=== PATIENT | male | born 1985 | race Caucasian/White ===

== ENCOUNTER 2020-04-29 16:51 | Emergency (ER) | payer OTHER, SELFPAY ==
[2020-04-29 17:15] VITALS: BP 154/84; PULSE 119; RESP 16; TEMP 37.1; O2SAT 97; BMI 35.2
--- NOTE | 2020-04-29 18:11 | HMH.EDUTC ---
[facility] [place] Disposition Clinical Impression: Exposure to COVID-19 virus, Viral syndrome, Bronchitis Disposition: Home, Self-Care Condition on Discharge: Good Instructions: Preventing the Spread of Coronavirus Discharge Instructions Additional Instructions: Drink plenty of fluids. Take tylenol or ibuprofen for pain or fever. Take the medications as directed. Follow up with your regular doctor. GO TO THE ER FOR ANY WORSENING SYMPTOMS Prescriptions: Albuterol Sulfate [Albuterol Sulfate Hfa] 2 puffs IH Q6HP PRN 30 Days #1 hfa.aer.ad PRN Reason: Shortness Of Breath Transmission Status: Received by [facility] Benzonatate [Tessalon Perle 100mg Cap] 100 mg PO TIDP PRN #30 cap PRN Reason: Cough Transmission Status: Received by [facility] Azithromycin [Z-Ruddy 250mg Tab*] 250 mg PO UD DOSE PK #6 tab Transmission Status: [facility] Referrals: Reshma Arellano [Primary Care Provider] - Time of Disposition: 18:16 Medical Decision Making - Medical Records Medical records reviewed: No: I reviewed the patient's medical records. - Thierno Inquiry Pt receiving controlled substance: No Vital Signs: 04/29/20 17:15 04/29/20 18:31 Temperature 98.7 F 98.7 F Temperature Source Oral Pulse Rate 119 H Pulse Rate [Right Brachial] 119 H Respiratory Rate 16 16 Blood Pressure 154/84 H Blood Pressure [Right Arm] 154/84 H Blood Pressure Mean [Right Arm] 107 Blood Pressure Source [Right Arm] Automatic Cuff Blood Pressure Position [Right Arm] Sitting 02 Sat by Pulse Oximetry 97 Oxygen Delivery Method Room Air Orders (Tests/Meds): ORDERS Category Date Time Status Covid-19 Nasal PCR ([facility]) Routine Lab 04/29/20 17:25 Received [facility] [place] HPI - General Stated complaint: fever,SOB,Vomiting, Pain Time Seen by Provider: 04/29/20 18:14 Mode of Arrival: Ambulatory Source of Information: Patient Limitations: No Limitations Description of Symptoms (Recalled from Triage Doc. by RN): PATIENT C/O FEVER, SOA, COUGH, AND BODY ACHES X 2 DAYS HEENT Symptoms (Recalled from RN notes): No Resp Symptoms (Recalled from RN notes): Yes Skin Symptoms (Recalled from RN notes): No MS Symptoms (Recalled from RN notes): No Functional Status (Recalled from RN notes): WNL - History of Present Illness Provider Complaint: He states that for the past 3 days he has had chest congestion, cough, fever, chills, body aches. He denies known contact with covid. - Related Data Previous Rx's Medication Instructions Recorded Albuterol Sulfate [Albuterol 2 puffs IH Q6HP PRN 30 Days #1 04/29/20 Sulfate Hfa] hfa.aer.ad Azithromycin [Z-Ruddy 250mg Tab*] 250 mg PO UD DOSE PK #6 tab 04/29/20 Benzonatate [Tessalon Perle 100mg 100 mg PO TIDP PRN #30 cap 04/29/20 Cap] Allergies Allergy/AdvReac Type Severity Reaction Status Date / Time No Known Allergies Allergy Verified 05/26/18 11:18 - Worker's Comp Is this a Worker's Comp case?: No [facility] History - Hepatitis A Screen Drug use history?: No High risk sexual behaviors?: No History of sexually transmitted infection?: No Currently employed?: No Childcare worker?: No Do you have indoor plumbing?: Yes Do you have electricity?: Yes Attestation statement:: This patient has been screened for Hepatitis A risk factors. I have reviewed the patient's past medical history: Yes Other Surgeries: Yes: No Previous Surgery Amputation: No Fractures: No - Social History Smoking Status: Current every day smoker Tobacco Type: cigarettes # Packs/Day (cigarettes): 1 Alcohol Intake: never Alcohol Intake Frequency:: holidays/special occasions only Occupational Status: other Family Hx:: No significant family history ROS Obtained: Yes All systems reviewed & no additional complaints - Constitutional Constitutional: Reports system reviewed and no additional complaints, except as docu - Eyes Eyes: Reports system reviewed and no additional complaints,
[2020-04-29 18:31] VITALS: BP 154/84; PULSE 119; RESP 16; TEMP 37.1; O2SAT 97
[2020-04-29 21:06] LABS: UTC Influenza A Antigen Negative (Negative); UTC Influenza B Antigen Negative (Negative)
== END 2020-04-29 18:36 | disposition home or self-care (01) ==
PROVIDERS: Emergency Provider Nurse Practitioner Family; PCP Physician Assistant
DX: Z20.828 Contact with and (suspected) exposure to other viral communicable diseases (principal); J20.9 Acute bronchitis, unspecified; F17.210 Nicotine dependence, cigarettes, uncomplicated
CPT/HCPCS: 87804; 99201; U0003

== ENCOUNTER → 2020-05-09 15:04 | Outpatient (CLI) | payer OTHER, SELFPAY ==
[2020-05-11 14:03] LABS: Covid-19 Nasal PCR Sendout Lex NOT DETECTED
== END ==
PROVIDERS: PCP Nurse Practitioner Family; Visit Provider Nurse Practitioner Family
DX: Z03.818 Encounter for observation for suspected exposure to other biological agents ruled out (principal)
CPT/HCPCS: U0004

== ENCOUNTER → 2020-06-28 13:16 | Outpatient (CLI) | payer OTHER, SELFPAY ==
--- NOTE | 2020-06-28 13:24 | XR_ITS ---
PROCEDURE: XR FOOT LT MIN 3V CLINICAL INDICATION: LT FOOT PAIN,LT FOOT SWELLING COMPARISON: No exams were available for comparison FINDINGS: No fracture or dislocation. No lytic or blastic change. There is normal mineralization. The joint spaces are well-preserved. No significant degenerative/arthritic changes. No erosive changes evident. Other findings:None. IMPRESSION: No acute findings. Dictated by: Michael Whiting MD 06/28/2020 14:58 Michael Whiting MD in [place] 06/28/2020 14:58
== END ==
PROVIDERS: PCP Nurse Practitioner Family; Visit Provider Nurse Practitioner Family
DX: M79.672 Pain in left foot (principal); R22.42 Localized swelling, mass and lump, left lower limb
CPT/HCPCS: 73630

== ENCOUNTER → 2020-07-25 14:24 | Outpatient (CLI) | payer OTHER, SELFPAY ==
--- NOTE | 2020-07-25 14:52 | XR_ITS ---
PROCEDURE: XR CHEST 2V CLINICAL HISTORY: CHEST PAIN, UNSPECIFIED, SOB COMPARISON: No exams were available for comparison FINDINGS: The cardiomediastinal silhouette and pulmonary vascularity are within normal limits. The lungs are clear without infiltrates, suspicious nodules, or pleural effusions. There is a bone plate overlying the left clavicle. Calcified granuloma is present in the left apex. IMPRESSION: No acute findings. Dictated by: Michael Whiting MD 07/25/2020 15:50 Michael Whiting MD in [place] 07/25/2020 15:50
--- NOTE | 2020-07-25 15:18 | ECG_ITS ---
APPROVED REPORT Exam: Resting ECG HR:108 bpm ECG Measurements Heart Rate 108 AXES MT 140 P 47 QRSd 100 QRS 84 QT 328 T 10 QTc 439 Conclusion Sinus tachycardia Otherwise normal ECG Electronically signed by : Ricardo Pineda, 07/25/2020 20:13:41
[2020-07-25 15:21] LABS: Basophils # 0.1 K/mm3 (0-0.2); Basophils % 0.7 % (0.1-2.0); Eosinophils # 0.3 K/mm3 (0.0-0.4); Hematocrit 48.5 % (42.0-52.0); Lymphocytes # 3.3 K/mm3 (0.7-4.5); Lymphocytes % 41.6 % (10-50); Mean Corpuscular Hemoglobin 30.1 pg (27.0-31.2); Mean Corpuscular Volume 91.1 fl (80-94); Mean Platelet Volume 7.7 fl (7.4-10.4); Monocytes # 0.5 K/mm3 (0.1-1.0); Monocytes % 6.3 % (1.7-9.3); Neutrophils # 3.7 K/mm3 (1.8-7.8); Neutrophils % 47.4 % (37.0-80.0); Platelet Count 315 K/mm3 (142-424); Red Blood Count 5.32 M/mm3 (4.60-6.20); Red Cell Distribution Width 13.2 % (11.5-17.5); White Blood Count 7.9 K/mm3 (4.8-10.8)
[2020-07-25 17:02] LABS: Chloride 106 mmol/L (98-107); Potassium 4.2 mmoL/L (3.5-5.1); Sodium 139 mmol/L (136-145)
[2020-07-25 17:04] LABS: Blood Urea Nitrogen 14 mg/dl (9-20); Estimated Glomerular Filt Rate 109 ml/min (>60); GFR (African American) 132 ML/MIN (>60)
[2020-07-25 17:05] LABS: Alanine Aminotransferase 205 U/L (12-78); Albumin/Globulin Ratio 1.7 (1.1-1.8); Alkaline Phosphatase 103 U/L (38-126); Anion Gap 12.2 mEq/L (5-15); Aspartate Amino Transferase 111 U/L (17-59); Bilirubin,Total 0.6 mg/dl (0.2-1.3); Calcium 10.4 mg/dl (8.4-10.2); Carbon Dioxide 25 mmol/L (22.0-30.0); Cholesterol 246 mg/dl (140-200); Glucose 193 mg/dl (74-100)
[2020-07-25 17:12] LABS: Triglycerides 566 mg/dl (30-150)
[2020-07-25 17:16] LABS: Direct LDL Cholesterol 107.93 mg/dL (100-129)
[2020-07-25 17:18] LABS: Troponin I < 0.01 ng/ml (0.00-0.034)
[2020-07-25 17:36] LABS: Thyroid Stimulating Hormone 1.85 uIU/mL (0.465-4.68)
[2020-07-25 23:31] LABS: Chol/HDL Ratio 5.5 (1-3.5); HDL Cholesterol 45 mg/dl (40-60); Magnesium 1.8 mg/dl (1.6-2.3)
== END ==
PROVIDERS: Visit Provider Nurse Practitioner Family
DX: R07.9 Chest pain, unspecified (principal); R06.02 Shortness of breath
CPT/HCPCS: 36415; 71046; 80053; 80061; 83735; 84443; 84484; 85025; 93005

== ENCOUNTER 2020-07-31 21:53 | Emergency (ER) | payer OTHER, SELFPAY ==
[2020-07-31 21:53] VITALS: BP 178/108; PULSE 111; RESP 19; TEMP 36.7; O2SAT 96; BMI 39.9
--- NOTE | 2020-07-31 21:57 | ECG_ITS ---
APPROVED REPORT Exam: Resting ECG HR:124 bpm ECG Measurements Heart Rate 124 AXES MT 132 P 52 QRSd 98 QRS 84 QT 308 T 10 QTc 442 Conclusion Sinus tachycardia Otherwise normal ECG Electronically signed by : Ricardo Pineda, 08/01/2020 06:45:18
--- NOTE | 2020-07-31 21:57 | XR_ITS ---
PROCEDURE: XR CHEST PORTABLE CLINICAL HISTORY: chest pain Chest pain high blood pressure, smoker COMPARISON: CR XR CHEST 2V from 07/25/2020 FINDINGS: The cardiomediastinal silhouette and pulmonary vascularity are within normal limits. The lungs are clear without infiltrates, suspicious nodules, or pleural effusions. Bone plate is present over the left clavicle IMPRESSION: No acute findings. Dictated by: Michael Whiting MD 08/01/2020 05:48 Michael Whiting MD in [place] 08/01/2020 05:48
--- NOTE | 2020-07-31 21:58 | CT_ITS ---
PROCEDURE: CT ANGIO CHEST CLINCIAL INDICATION: chest pain to back, HTN COMPARISON: No exams were available for comparison TECHNIQUE: IV Contrast: 70ML Isovue 370 Axial images obtained with sagittal and coronal reformats. All CT scans at the facility use one or more dose reduction, viz: automated exposure control, ma/kV adjustment per patient size (including targeted exams where dose is matched to indication, i.e. head), or iterative reconstruction technique. FINDINGS: HEART AND MEDIASTINAL STRUCTURES: No evidence of pulmonary embolus, aortic aneurysm, or aortic dissection. LUNGS AND PLEURAL SPACES: Left upper lobe granuloma. No lobar consolidation or collapse BONY STRUCTURES: No acute bony abnormalities apparent. UPPER ABDOMEN: Fatty liver. There is mild nonspecific thickening of the esophagus possibly due to nondistention versus esophagitis. ADDITIONAL FINDINGS: Gynecomastia IMPRESSION: 1. No evidence of pulmonary embolus. 2. Fatty liver. 3. Mild mid esophageal wall thickening which could be due to nondistention or esophagitis. Dictated by: Michael Whiting MD 08/01/2020 06:18 Michael Whiting MD in [place] 08/01/2020 06:18
--- NOTE | 2020-07-31 21:58 | HMH.EDGENADL ---
ED Disposition Clinical Impression: Atypical chest pain, Esophageal abnormality Hypertension Qualifiers: Hypertension type: unspecified Qualified Code(s): I10 - Essential (primary) hypertension Disposition: Home, Self-Care Condition on Discharge: Fair Instructions: DI for Atypical Chest Pain, Treatments for High Blood Pressure: More Than Just Taking a Pill Additional Instructions: You have been evaluated for atypical chest pain. Please continue taking all medications as prescribed. You have been found to have swelling at the distal portion of your esophagus. Follow-up with your primary care doctor as soon as available. Follow-up with cardiology, Dr. Barbosa in clinic. Return to the emergency department at once if you have any new or worsening symptoms like chest pain, shortness of breath, other concerns. Referrals: PCP,No [Non-Staff] - Jaun Barbosa MD [Staff Physician] - Time of Disposition: : - Critical Care Critical Care Time: No Attestation: On , the high probability of a clinically significant, sudden or life threatening deterioration of the following system(s) required my full and direct attention, intervention and personal management. The time I documented below is in addition to time spent performing reported procedures but includes the following listed in this critical care notation. Medical Decision Making - Medical Records Medical records reviewed: Yes: I reviewed the patient's medical records. - Thierno Inquiry Pt receiving controlled substance: No Vital Signs: 07/31/20 21:53 07/31/20 22:00 07/31/20 23:00 Temperature 98.1 F Temperature Source Oral Pulse Rate [Right Radial] 111 H 97 H 98 H Respiratory Rate 19 19 17 Blood Pressure [Right Arm] 178/108 H 164/97 H 144/93 H Blood Pressure Mean [Right Arm] 131 119 110 Blood Pressure Source [Right Arm] Automatic Cuff Automatic Cuff Automatic Cuff Blood Pressure Position [Right Arm] Sitting Supine Supine 02 Sat by Pulse Oximetry 96 96 96 Oxygen Delivery Method Room Air Room Air Room Air 08/01/20 00:00 08/01/20 00:30 Temperature Temperature Source Pulse Rate [Right Radial] 88 84 Respiratory Rate 16 16 Blood Pressure [Right Arm] 125/79 120/74 Blood Pressure Mean [Right Arm] 94 89 Blood Pressure Source [Right Arm] Automatic Cuff Automatic Cuff Blood Pressure Position [Right Arm] Supine Supine 02 Sat by Pulse Oximetry 96 97 Oxygen Delivery Method Room Air Room Air - Lab Data Lab Results 07/31/20 21:54: WBC 10.6, RBC 5.24, Hgb 15.7, Hct 46.3, MCV 88.4, MCH 30.0, MCHC 34.0, RDW 13.2, Plt Count 307, MPV 7.5, Neut % (Auto) 47.5, Lymph % (Auto) 40.4, Harvey % (Auto) 7.3, Eos % (Auto) 3.9, Baso % (Auto) 0.8, Neut # (Auto) 5.0, Lymph # (Auto) 4.3, Harvey # (Auto) 0.8, Eos # (Auto) 0.4, Baso # (Auto) 0.1 07/31/20 21:54: Sodium 140, Potassium 3.7, Chloride 106, Carbon Dioxide 26, Anion Gap 11.7, BUN 14, Creatinine 0.80, Estimated Creat Clear 228, Estimated GFR 109, Est GFR ( Amer) 132, Glucose 146 H, Calcium 10.1, Troponin I < 0.01, TSH 2.68, Thyroxine (T4) 11.2 H 08/01/20 00:46: Troponin I < 0.01 Result diagrams: 07/31/20 21:54 07/31/20 21:54 Orders (Tests/Meds): ED MEDICATIONS Discontinued Medications Generic Name Dose Route Start Last Admin Trade Name Ken PRN Reason Stop Dose Admin Aspirin 325 mg 07/31/20 21:58 07/31/20 22:06 Aspirin 325mg Tablet PO 07/31/20 21:59 325 mg ONCE ONE Administration Iopamidol 70 ml 07/31/20 22:36 07/31/20 22:39 Iopamidol-370 (76%);100ml Bottle IV 07/31/20 22:37 70 ml ONCE ONE Administration Nitroglycerin 0.4 mg 07/31/20 21:58 07/31/20 22:00 Nitroglycerin 0.4mg Sl Tablet SL 07/31/20 21:59 1 tab ONCE ONE Administration Nitroglycerin 0.4 mg 07/31/20 22:12 07/31/20 22:07 Nitroglycerin 0.4mg Sl Tablet SL 07/31/20 22:13 1 tab ONCE ONE Administration Nitroglycerin 1 gm 07/31/20 22:49 07/31/20 22:50 Nitroglycerin 1 Gm Ointment TD 07/31
[2020-07-31 22:00] VITALS: BP 164/97; PULSE 97; RESP 19; O2SAT 96
[2020-07-31 22:11] LABS: Basophils # 0.1 K/mm3 (0-0.2); Basophils % 0.8 % (0.1-2.0); Eosinophils # 0.4 K/mm3 (0.0-0.4); Eosinophils % 3.9 % (0.1-12.0); Hematocrit 46.3 % (42.0-52.0); Hemoglobin 15.7 g/dL (14.1-18.0); Lymphocytes # 4.3 K/mm3 (0.7-4.5); Lymphocytes % 40.4 % (10-50); Mean Corpuscular Volume 88.4 fl (80-94); Mean Platelet Volume 7.5 fl (7.4-10.4); Monocytes # 0.8 K/mm3 (0.1-1.0); Monocytes % 7.3 % (1.7-9.3); Neutrophils % 47.5 % (37.0-80.0); Platelet Count 307 K/mm3 (142-424); Red Blood Count 5.24 M/mm3 (4.60-6.20); Red Cell Distribution Width 13.2 % (11.5-17.5); White Blood Count 10.6 K/mm3 (4.8-10.8)
--- NOTE | 2020-07-31 22:14 | PC.NURSE ---
1st nitro pt stated pain was about the same on reassessment. Given another sl tab. On reassessment of 2nd nitro pt stated the 2nd one helped and rated it as 1 out of 10.
[2020-07-31 22:24] LABS: Anion Gap 11.7 mEq/L (5-15); Blood Urea Nitrogen 14 mg/dl (9-20); Calcium 10.1 mg/dl (8.4-10.2); Carbon Dioxide 26 mmol/L (22.0-30.0); Chloride 106 mmol/L (98-107); Creatinine Clearance Estimated 228 mL/min (50-200); Estimated Glomerular Filt Rate 109 ml/min (>60); GFR (African American) 132 ML/MIN (>60); Glucose 146 mg/dl (74-100); Potassium 3.7 mmoL/L (3.5-5.1); Sodium 140 mmol/L (136-145)
[2020-07-31 22:38] LABS: Troponin I < 0.01 ng/ml (0.00-0.034)
[2020-07-31 22:43] LABS: T4 (Thyroxine) 11.2 ug/dl (5.53-11.0)
[2020-07-31 22:56] LABS: Thyroid Stimulating Hormone 2.68 uIU/mL (0.465-4.68)
--- NOTE | 2020-07-31 22:56 | PC.NURSE ---
received ct results
[2020-07-31 23:00] VITALS: BP 144/93; PULSE 98; RESP 17; O2SAT 96
--- NOTE | 2020-07-31 23:17 | PC.NURSE ---
Pt ambulating to BR to void at this time
[2020-08-01] VITALS: BP 125/79; PULSE 88; RESP 16; O2SAT 96
[2020-08-01 00:30] VITALS: BP 120/74; PULSE 84; RESP 16; O2SAT 97
[2020-08-01 01:14] LABS: Troponin I < 0.01 ng/ml (0.00-0.034)
[2020-08-01 01:22] VITALS: BP 125/69; PULSE 76; RESP 17; TEMP 36.6; O2SAT 97
== END 2020-08-01 01:29 | disposition home or self-care (01) ==
PROVIDERS: Emergency Provider Emergency Medicine; PCP Nurse Practitioner Family
DX: R07.89 Other chest pain (principal); I10 Essential (primary) hypertension; K22.9 Disease of esophagus, unspecified; F17.210 Nicotine dependence, cigarettes, uncomplicated
CPT/HCPCS: 71045; 71275; 80048; 84436; 84443; 84484; 85025; 93005; 99284; Q9967; U0003

== ENCOUNTER → 2020-08-04 12:58 | Outpatient (CLI) | payer OTHER, SELFPAY | PROVIDERS: PCP Nurse Practitioner Family; Visit Provider Nurse Practitioner Family | DX: G47.30 Sleep apnea, unspecified (principal); R40.0 Somnolence; I10 Essential (primary) hypertension; R06.83 Snoring | CPT/HCPCS: 95806 ==

== ENCOUNTER → 2020-08-15 06:48 | Outpatient (CLI) | payer OTHER, SELFPAY ==
--- NOTE | 2020-08-15 06:48 | CA_ITS ---
APPROVED REPORT Exam: Pharmacologic Technologist: Batsheva Hsu Ht: 5 ft 10 in Wt: 277 lbs BSA: 2.40 m2 HR: 69 bpm BP: 133/77 mmHg Indications: Shortness of Air, chest pain Medical History Medications: Metoprolol,,,,, MeLOXICAM,,,,, PaROXETINE,,,,, Hydroxyzine,,,,, Stress Test Details Test: LEXISCAN HR Resting HR: 76 bpm Max Heart Rate (APMHR): 184.728654 bpm Max HR Achieved: 132 bpm Target HR (85% APMHR): 156.072445 bpm % of APMHR: 71.74 Recovery HR: 91 bpm BP Resting BP: 133.0/77.0 mmHg Max BP: 139.0/79.0 mmHg Recovery BP: 133.0/73.0 mmHg ECG Clinical Exercise duration: 04:01 min Highest Stage Achieved: Exercise capacity: 1.0 METs Stress ECG Conclusion Symptoms: Shortess of air noted with Lexiscan infusion. No chest pain. Arrhythmias/Ectopy: None noted ST-T Changes: < 1.[address] segment changes. Test Summary REST . . . . . . . Resting REST 13:17 . . 76 . 133/ 77 . . Stage 1 . . . . . . . Myoview Injected Stage 1 01:00 . . 129 . . . . Stage 2 01:00 . . 127 . 137/ 80 . . Stage 3 01:00 . . 111 . 135/ 82 . . Stage 4 01:00 . . 99 . 131/ 82 . . Stage 4 01:01 . . 99 . 131/ 82 . Stop exercise at 04:01 RECOVERY 01:00 . . 96 . 139/ 79 . . RECOVERY 02:00 . . 87 . 139/ 79 . . RECOVERY 03:00 . . 91 . 125/ 80 . . RECOVERY 03:26 . . 89 . 133/ 73 . . Electronically signed by : Asa Rome, 08/15/2020 21:58:00
--- NOTE | 2020-08-15 06:48 | NM_ITS ---
APPROVED REPORT Exam: Nuclear Stress Test Indication: Chest pain, SOB, Fatigue, HTN, Tobacco use Patient Location: Outpatient Stress Tech: Batsheva Hsu [place] Tech:Deann Falcon, ARRT, RT (R)(N) Ht: 5 ft 10 in Wt: 276 lbs HR: 69 bpm BP: 133/77 mmHg BSA: 2.39 m2 BMI: 39.5 History: Chest pain, SOB, Fatigue, HTN, Tobacco use Procedure: Patient received a 0.4 mg of intravenous Lexiscan, resting heart rate 69 bpm, resting blood pressure 133/77 mmHg, with Lexiscan maximum heart rate achived was 126 bpm which is Less than 85 % of the maximum predicted heart rate and blood pressure was 137/80 mmHg. With Lexiscan, patient denied any complaint of chest pain. Electrocardiogram Resting electrocardiogram showed sinus rhythm, with Lexiscan there is less than 1.[address] segment depression noted from the baseline EKG. The EKG portion of the Lexiscan is nondiagnostic. Cardiac Stress and Resting SPECT Images: Cardiac Stress and Resting SPECT images were obtained using technetium 99m Myoview 28.6 mCi stress and 9.34 mCi at rest. Gated SPECT for analysis of segmental wall motion and calculation of the ejection fraction also done. Prone images were also obtained. Cardiac stress and rest SPECT images show mild reversible defect involving the anterior apical wall, computer derived ejection fraction is 57% with no regional wall motion abnormality, right ventricle is normal size and contractility. Conclusion: 1. The EKG portion of the Lexiscan is nondiagnostic. 2. Scintigraphic evidence of mild reversible ischemia involving the anterior apical wall, computer derived ejection fraction is 57% with no regional wall motion abnormality, right ventricle is normal size and contractility. 3. Abnormal Lexiscan Myoview study. Electronically signed by : Asa Rome, 08/15/2020 22:05:27
--- NOTE | 2020-08-15 06:48 | CA_ITS ---
APPROVED REPORT EXAM: Comprehensive 2D, Doppler, and color-flow Echocardiogram Scrum Coach: Sena Harman, RCS, RVS Ht: 5 ft 10 in Wt: 277lbs BSA: 2.40 BP: 158/98 mmHg Indications: SOA,ABN EKG, ESMER 2D Dimensions LVOT 2.06 cm (M/F) 1.5-2.5 M-Mode Dimensions LA Diam 3.43 cm (1.9-4.0) LVDd 4.70 cm (3.5-5.7) Ao Diam 2.93 cm (2.0-3.7) LVDs 3.27 cm (3.5-5.7) IVSd 0.84 cm (0.6-1.1) PWd 0.98 cm (0.6-1.1) EF (Teich) 57.80% EPSs 0.72 cm FS 30.40% EDV (Teich) 102.40 mL TAPSE 1.41 (<1.7) ESV (Teich) 43.20 mL LV Diastology E Decel Time 180.00 (160-240 msec) E/A Ratio 1.3 MED E' 8.30 (< 7 cm/sec) MED A' 8.90 cm/s E'/MED E' Ratio 10.14 (>14) LAT E' 11.50 (<10 cm/sec) LAT A' 8.60 cm/s E/LAT E' Ratio 7.32 (>14) Aortic Valve LVOT Max 110.00 (70-110 cm/s) LVOT VTI 21.25 cm AO Peak GR. 6.30 mmHg Mitral Valve MV E Max Paul. 84.00 (40-130 cm/s) MV A Velocity 64.00 (40-130 cm/s) E/A Ratio 1.32 MV Decel. Time 180.00 (160-240 ms) MV PHT 53.00 ms Pulmonary Valve PV Peak Velocity 96.00 (50-150 cm/s) Tricuspid Valve TR P. Velocity 183.00 cm/s RAP Estimate 10.00 mmHg RVSP 23.30 mmHg Left Ventricle Left atrium is normal size, left ventricle is normal size, there is no concentric left ventricular hypertrophy, visually estimated ejection fraction 55% with no regional wall motion abnormality, diastolic parameters are within normal range. Right Ventricle Right atrium and right ventricle are normal size and contractility. Aortic Valve Aortic valve is grossly normal, there is no aortic stenosis or aortic insufficiency. Mitral Valve Mitral valve grossly normal, there is trace mitral regurgitation. Tricuspid Valve Tricuspid valve grossly normal, there is trace tricuspid regurgitation, tricuspid regurgitation jet velocity is inadequate for calculation of the right ventricular systolic pressure. Pulmonic Valve Pulmonic valve is poorly visualized. Great Vessels Aortic root is normal size. Pericardium No significant pericardial effusion noted. Conclusion 1. Normal left ventricular size, preserved left ventricular systolic function, visually estimated ejection fraction 55% with no regional wall motion abnormality, diastolic parameters are within normal range. 2. Trace mitral and tricuspid regurgitation. 3. No significant pericardial effusion noted. Electronically signed by : Asa Rome, 08/15/2020 09:01:07
--- NOTE | 2020-08-15 09:25 | HMH.ITSHM ---
Current Home Medications as stated by this patient Lupillo Maya or inventory representative. []ASA MELOXICAM HYDROXYZINE LISINOPRIL METOPROLOL PAROXETINE CEPHALEXIN
== END ==
PROVIDERS: PCP Nurse Practitioner Family; Visit Provider Nurse Practitioner Family
DX: R07.89 Other chest pain (principal); R06.02 Shortness of breath; R94.31 Abnormal electrocardiogram [ECG] [EKG]
CPT/HCPCS: 78452; 93017; 93306; A9502; J2785

== ENCOUNTER → 2020-09-07 06:29 | Outpatient (CLI) | payer OTHER, SELFPAY ==
--- NOTE | 2020-09-07 06:31 | CT_ITS ---
PROCEDURE: CT ANGIO CORONARY ARTERY CLINCAL INDICATION: chest pain Left CT hydrating >200ml used COMPARISON: No exams were available for comparison TECHNIQUE: IV Contrast: 200ml Isovue 370 Gated post enhanced images are obtained x2. Patient's heart rate was in the low to mid 60s. Therefore, medication for bradycardia was not given. Helical images are obtained with curved planar reformats. All CT scans at the facility use one or more dose reduction, viz: automated exposure control, ma/kV adjustment per patient size (including targeted exams where dose is matched to indication, i.e. head), or iterative reconstruction technique. FINDINGS: The coronary arteries originate from the aorta as expected with no anatomic variance apparent. Left main coronary artery is unremarkable. The LAD has an unremarkable appearance. There is a prominent 1st diagonal which has an unremarkable appearance. The circumflex, and marginals have an unremarkable appearance. The most distal aspect of the coronary arteries are not well delineated but no obstructive changes are evident. The circumflex gives rise to the posterior lateral branch to the left ventricle. There is cold dominant supply to the inferior wall. The proximal RCA has an unremarkable appearance. Moderate motion artifact degrades image quality of the distal RCA and PDA. No obstructing lesions are evident. No myocardial bridging.. IMPRESSION: Unremarkable CTA of the coronary arteries. Dictated by: Michael Whiting MD 09/08/2020 13:17 Michael Whiting MD in [place] 09/08/2020 13:17
[2020-09-07 07:36] VITALS: BP 134/68; PULSE 74; RESP 18; TEMP 36.9; O2SAT 96
== END ==
PROVIDERS: PCP Nurse Practitioner Family; Visit Provider Nurse Practitioner Family
DX: R07.89 Other chest pain (principal)
CPT/HCPCS: 75574; Q9967

== ENCOUNTER → 2020-09-17 10:21 | Outpatient (CLI) | payer OTHER, SELFPAY ==
[2020-09-17 10:46] LABS: Basophils # 0.1 K/mm3 (0-0.2); Eosinophils # 0.3 K/mm3 (0.0-0.4); Hematocrit 44.2 % (42.0-52.0); Hemoglobin 14.9 g/dL (14.1-18.0); Lymphocytes # 3.4 K/mm3 (0.7-4.5); Lymphocytes % 43.6 % (10-50); Mean Corpuscular HGB Conc 33.7 g/dL (31.8-35.4); Mean Corpuscular Hemoglobin 29.4 pg (27.0-31.2); Mean Corpuscular Volume 87.1 fl (80-94); Mean Platelet Volume 7.1 fl (7.4-10.4); Monocytes # 0.5 K/mm3 (0.1-1.0); Monocytes % 6.7 % (1.7-9.3); Neutrophils # 3.5 K/mm3 (1.8-7.8); Neutrophils % 44.7 % (37.0-80.0); Platelet Count 294 K/mm3 (142-424); Red Blood Count 5.07 M/mm3 (4.60-6.20); Red Cell Distribution Width 13.7 % (11.5-17.5); White Blood Count 7.9 K/mm3 (4.8-10.8)
[2020-09-17 11:09] LABS: Chloride 103 mmol/L (98-107); Potassium 4.5 mmoL/L (3.5-5.1); Sodium 137 mmol/L (136-145)
[2020-09-17 11:12] LABS: Blood Urea Nitrogen 13 mg/dl (9-20); Estimated Glomerular Filt Rate 109 ml/min (>60); GFR (African American) 132 ML/MIN (>60)
[2020-09-17 11:13] LABS: Anion Gap 12.5 mEq/L (5-15); Calcium 9.8 mg/dl (8.4-10.2); Carbon Dioxide 26 mmol/L (22.0-30.0); Glucose 129 mg/dl (74-100)
[2020-09-17 12:15] LABS: Coronavirus 19 IgG Antibody Negative (Negative); Coronavirus 19 IgM Antibody Negative (Negative)
== END ==
PROVIDERS: Visit Provider Urology
DX: R06.00 Dyspnea, unspecified (principal); I20.9 Angina pectoris, unspecified; I10 Essential (primary) hypertension; R07.9 Chest pain, unspecified; R94.30 Abnormal result of cardiovascular function study, unspecified; R94.31 Abnormal electrocardiogram [ECG] [EKG]; Z72.0 Tobacco use; Z11.52 Encounter for screening for COVID-19
CPT/HCPCS: 36415; 80048; 85025; 86328

== ENCOUNTER 2020-09-19 10:01 | Day surgery (SDC) | payer OTHER, SELFPAY ==
[2020-09-13 14:04] VITALS: BMI 40.1
[2020-09-19] VITALS (9 sets, daily range): BP systolic 100–131; BP diastolic 54–75; PULSE 69–86; RESP 12–18; TEMP 36.4–36.6; O2SAT 95–99
--- NOTE | 2020-09-19 12:04 | P.PN_ITS ---
[facility] Anesthesia Checklist - Patient Identification Patient Identification: Arm Band - Structural Data Admitted From: Home Planned Operative Procedure/s: egd Consent for Planned Operative Procedure(s) Verified: Yes - NPO Status Verified Time NPO: 00:00 - Additional verifications Anesthesia Reactions: No Hx Blood Transfusions: No Blood Transfusion Reaction: No - Airway Assessment Dentition: Good Dentition - Neurological Assessment Level of Consciousness: Awake, Alert Hx Seizures: No Numbness or tingling in extremities: No - Anesthesia Plan Anesthesia Risk discussed: Yes Anesthesia Plan: Verified ASA Class: III Anesthesia Type: MAC [facility] History I have reviewed the patient's past medical history: Yes Medical History: Reports:: Anxiety, Arrhythmia, Asthma, Coronary Artery Disease, Depression, Hyperlipidemia, Hypertension, MRSA (abdomen, buttocks) Denies:: Cancer, Diabetes Mellitus Type 1, Diabetes Mellitus Type 2, Internal Pacemaker, Seizures *Have you ever received a pneumonia vaccine?: No *Have you received a flu vaccine this season?: No Other Medical History: Denies: Blood Transfusion Reaction Anesthesia experience/problems:: Wakes up angry Laterality Cases: Left: Arthroscopy Knee, Bilateral: Tonsillectomy Other Surgeries: Yes: No Previous Surgery. No: Pacemaker Amputation: No Fractures: No - *Social History Last grade of school completed: 11th or 12th Smoking Status: Former smoker Tobacco Type: smokeless tobacco # Packs/Day (cigarettes): 0 #Yrs smoked (if former smoker): 16 Smoking End Date: quit 7 weeks ago Alcohol Intake: never Alcohol Intake Frequency:: holidays/special occasions only Substance Use Type: denies use *Occupational Status:: employed Housing: house Household Members: spouse, children *Travel in the last 8 weeks: None - Psychiatric History Pschychiatric History:: Reports:: Anxiety Family Hx:: Non-contributory
--- NOTE | 2020-09-19 12:29 | HMH.PROC ---
[facility] Procedure Note Procedure Note:: Upper Endoscopy Procedure Report: Esophagogastroduodenoscopy with cold biopsies Endoscopost: Wayne Das II, MD Referring Physician: PRANAY Bentley Date of Procedure: September 19, 2020 Equipment: Olympus GIF 190 standard upper endoscope Sedation: MAC sedation Indications: Mr. Maya is a 35-year-old gentleman who went to the emergency department 2 months ago with chest pain. The patient was at the [facility]. He did have an elevated blood pressure and was placed on lisinopril/HCTZ. He went to the ep technologist the subsequent day and failed his cardiac stress test. The patient states that his insurance would not cover cardiac catheterization. The patient has had moderate dyspepsia and intractable reflux. He does report heartburn and reflux. He has had belching, bloating, early satiety and epigastric discomfort. He reports no nausea, melena, weight loss or dysphagia. The patient did have a CT scan of the abdomen and pelvis that showed some thickening in the lower esophagus. The patient is not on any PPI therapy. He does state that his bowel function is regular but he does have soft stools that are not solid. He continues to have some atypical chest pain. Procedure: Prior to the procedure, a history and physical exam was performed, and patient's medications and allergies were reviewed. The risks, benefits and alternatives of the sedation and procedure were discussed with the patient. All questions were answered and informed consent was obtained. The patient was brought to the procedure room. Patient identification and proposed procedure were verified by the physician and the nurse. The patient was placed in a left lateral decubitus position and the scope was passed under direct vision. Throughout the procedure, the patient's blood pressure, pulse, and oxygen saturations were monitored continuously. The upper GI endoscopy was accomplished without difficulty. The patient tolerated the procedure well. Findings: The scope was passed directly into the upper esophagus and advanced to the third portion of the duodenum. The post bulbar duodenum and duodenal bulb were normal with normal mucosa and conniventes. The scope was withdrawn through a normal duodenal bulb and pylorus into the stomach. There was marked bile reflux with moderate linear reactive gastropathy of the antrum of the stomach. The remainder of the body and fundus of the stomach were grossly normal. Upon retroflexion there was a very small sliding 1 to 2 cm hiatal hernia. 2 biopsies were taken in the antrum and along the lesser curvature for histology to rule out gastritis and/or H pylori. The scope was then withdrawn into the esophagus. There was evidence of grade C (LA classification) reflux esophagitis. Cold biopsies were taken at the GE junction. There was also evidence of mild to moderate esophageal dysmotility. The remainder of the esophageal mucosa was normal. Impression: 1. Grade C reflux esophagitis (LA classification) with moderate esophageal dysmotility and very small sliding hiatal hernia (1 to 2 cm) 2. Bile reflux with moderate linear reactive gastropathy of antrum Plan: I will follow-up the biopsies. The patient does have complicated GERD. I would recommend omeprazole 40 mg p.o. daily. We will discuss additional treatment options of his dyspepsia and esophageal dyskinesia. I do feel that it is important that we complete his cardiac evaluation with catheterization if he failed his stress test.
--- NOTE | 2020-09-19 12:31 | P.PN_ITS ---
[facility] Anesthesia Record Part I Intake, IV Amount: 600 Estimated blood loss (mL): 0 Urine output (mL): 0 Blood Pressure: 111/54 SaO2: 95 Pulse Rate: 86 Respiratory Rate: 12 Temperature: 97.5 F Patient is:: Drowsy Stable to PACU at:: 12:29
--- NOTE | 2020-09-19 13:59 | HMH.ANESII ---
[facility] Anesthesia Record Part II Discharge Time: 13:09 Destination: Surgical Day Care (OP Surgery) PACU nurse assessment reviewed?: Yes Patient Condition:: Good Anesthesia Complications:: None Swallowing reflex intact?: Yes Cyanosis?: No Blood Pressure: 130/71 Pulse Rate: 72 Temperature: 97.5 F Mental Status: Alert & Oriented Pain level:: 0 Nausea and/or vomitting:: None Intake, IV Amount: 600
== END 2020-09-19 13:15 | disposition home or self-care (01) ==
LOC: OUTP 10:04
PROVIDERS: PCP Nurse Practitioner Family; Visit Provider Internal Medicine Gastroenterology
PROC: 0DJ08ZZ Inspection of Upper Intestinal Tract, Via Natural or Artificial Opening Endoscopic (ICD-10-PCS; CPT 43235; principal; 2020-09-19 11:00)
DX: K21.9 Gastro-esophageal reflux disease without esophagitis (principal); K31.9 Disease of stomach and duodenum, unspecified; K44.9 Diaphragmatic hernia without obstruction or gangrene; K22.4 Dyskinesia of esophagus; F41.9 Anxiety disorder, unspecified; J45.909 Unspecified asthma, uncomplicated; I25.10 Atherosclerotic heart disease of native coronary artery without angina pectoris; F32.9 Major depressive disorder, single episode, unspecified; E78.5 Hyperlipidemia, unspecified; I10 Essential (primary) hypertension; Z86.14 Personal history of Methicillin resistant Staphylococcus aureus infection; Z87.39 Personal history of other diseases of the musculoskeletal system and connective tissue
CPT/HCPCS: 43239; J2704

== ENCOUNTER → 2020-10-14 07:46 | Outpatient (CLI) | payer SELFPAY ==
--- NOTE | 2020-10-14 07:46 | CT_ITS ---
PROCEDURE: CT HEART W CALCIUM SCORE CLINICAL HISTORY: typical angina COMPARISON: No exams were available for comparison TECHNIQUE: Axial images obtained with sagittal and coronal reformats. All CT scans at the facility use one or more dose reduction, viz: automated exposure control, ma/kV adjustment per patient size (including targeted exams where dose is matched to indication, i.e. head), or iterative reconstruction technique. FINDINGS: The coronary artery calcium score is 0. No identifiable calcific atherosclerotic plaque with very low cardiovascular disease risk IMPRESSION: No identifiable calcific atherosclerotic plaque with very low cardiovascular disease risk Dictated by: Michael Whiting MD 10/17/2020 08:31 Michael Whiting MD in [place] 10/17/2020 08:31
== END ==
PROVIDERS: PCP Nurse Practitioner Family; Visit Provider Internal Medicine Cardiovascular Disease
DX: Z13.6 Encounter for screening for cardiovascular disorders (principal); R06.02 Shortness of breath; I20.9 Angina pectoris, unspecified; R94.30 Abnormal result of cardiovascular function study, unspecified; R94.31 Abnormal electrocardiogram [ECG] [EKG]; Z72.0 Tobacco use; Z82.49 Family history of ischemic heart disease and other diseases of the circulatory system
CPT/HCPCS: 75571

== ENCOUNTER → 2020-11-09 10:34 | Outpatient (CLI) | payer OTHER, SELFPAY | PROVIDERS: Visit Provider Internal Medicine Cardiovascular Disease | DX: Z01.812 Encounter for preprocedural laboratory examination (principal); Z11.52 Encounter for screening for COVID-19 | CPT/HCPCS: U0003 ==

== ENCOUNTER → 2021-01-06 14:34 | Outpatient (CLI) | payer OTHER, SELFPAY | PROVIDERS: Visit Provider Internal Medicine Gastroenterology | DX: Z01.812 Encounter for preprocedural laboratory examination (principal); Z11.52 Encounter for screening for COVID-19; Z12.11 Encounter for screening for malignant neoplasm of colon | CPT/HCPCS: U0003 ==

== ENCOUNTER 2021-01-09 06:59 | Day surgery (SDC) | payer OTHER, SELFPAY ==
[2021-01-05 12:42] VITALS: BMI 40.4
[2021-01-09 07:15] VITALS: BP 140/78; PULSE 79; RESP 18; TEMP 36.8; O2SAT 98
--- NOTE | 2021-01-09 07:40 | P.PN_ITS ---
[facility] Anesthesia Checklist - Patient Identification Patient Identification: Arm Band - Structural Data Admitted From: Home Planned Operative Procedure/s: Colonoscopy Consent for Planned Operative Procedure(s) Verified: Yes - NPO Status Verified Time NPO: 00:00 - Additional verifications Anesthesia Reactions: No Hx Blood Transfusions: No Blood Transfusion Reaction: No - Airway Assessment C-Spine Mobility Assessed: Yes TMJ Mobility Assessed: Yes Dentition: Good Dentition - Neurological Assessment Level of Consciousness: Awake Hx Seizures: No Numbness or tingling in extremities: No - Anesthesia Plan Anesthesia Risk discussed: Yes Anesthesia Plan: Verified ASA Class: II Anesthesia Type: MAC [facility] History I have reviewed the patient's past medical history: Yes Medical History: Reports:: Anxiety, Arrhythmia, Asthma, Coronary Artery Disease, Depression, Hyperlipidemia, Hypertension, MRSA Denies:: Cancer, Diabetes Mellitus Type 1, Diabetes Mellitus Type 2, Internal Pacemaker, Seizures *Have you ever received a pneumonia vaccine?: No *Have you received a flu vaccine this season?: No Other Medical History: Denies: Blood Transfusion Reaction Anesthesia experience/problems:: None Laterality Cases: Left: Arthroscopy Knee, Bilateral: Tonsillectomy Other Surgeries: Yes: No Previous Surgery. No: Pacemaker Amputation: No Fractures: No - *Social History Last grade of school completed: High school graduate Smoking Status: Former smoker Tobacco Type: smokeless tobacco # Packs/Day (cigarettes): 0 #Yrs smoked (if former smoker): 15 Smoking End Date: 09/01/2020 Alcohol Intake: never Alcohol Intake Frequency:: holidays/special occasions only Substance Use Type: denies use *Occupational Status:: employed Housing: house Household Members: spouse, children *Travel in the last 8 weeks: None - Psychiatric History Pschychiatric History:: Reports:: Anxiety, Depression Family Hx:: No significant family history
--- NOTE | 2021-01-09 08:13 | HMH.PROC ---
[facility] Procedure Note Procedure Note:: Colonoscopy Procedure Report: Colonoscopy Endoscopist: Wayne Das II, MD Referring physician: Jaun Barbosa MD/PRANAY Bentley said CSID Date of Procedure: January 09, 2021 Equipment: Olympus 190 variable stiffness pediatric colonoscope Sedation: MAC sedation Indication: Mr. Maya is a 35-year-old gentleman who was having chest pain and dyspepsia. He underwent an EGD that showed evidence of reflux esophagitis and esophageal dyskinesia. His cardiac evaluation was essentially normal. The patient has had soft and sometimes loose stools with seepage and excessive wiping. He has had marked bloating but no abdominal pain. He notes some blood from internal hemorrhoids. Colonoscopy is performed for diagnostic purposes. He reports no weight loss or family history of colon cancer. Procedure: Prior to the procedure, a history and physical exam was performed, and patient's medications and allergies were reviewed. The risks, benefits and alternatives of the sedation and procedure were discussed with the patient. All questions were answered and informed consent was obtained. The patient was brought to the procedure room. Patient identification and proposed procedure were verified by the physician and the nurse. The patient was placed in a left lateral decubitus position and the scope was passed under direct vision. Throughout the procedure, the patient's blood pressure, pulse, and oxygen saturations were monitored continuously. The colonoscopy was accomplished without difficulty. The patient tolerated the procedure well. Findings: On digital rectal examination there was normal rectal tone. There were no external hemorrhoids. The colonoscope was introduced through the anal canal to the rectum and advanced to the cecum. The ileocecal valve and appendiceal orifice were identified. The scope was advanced a short distance into the ileum which appeared grossly normal. The scope was then withdrawn into the colon. The cecum, ascending, transverse, descending, sigmoid and rectum were grossly normal. There were no mucosal abnormalities identified. Upon retroflexion within the rectum there were grade 1-2 internal hemorrhoids.The preparation was excellent throughout with [place] Preparation Score of 9. The cecal time was 10 minutes. Impression: 1. Normal colonoscopy with intubation of the terminal ileum 2. Grade 1-2 internal hemorrhoids Plan: I do feel the patient has obstipation/incomplete bowel evacuation. 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 I would recommend dietary measures (low FODMAP/soft residue) and consider fiber bulk (Konsyl or FiberCon) on a long-term daily maintenance basis. I would also consider sucrose C 13 breath testing for CSID (sucrase isomaltase deficiency).
[2021-01-09 08:30] VITALS: BP 112/75; PULSE 78; RESP 12; TEMP 36.2; O2SAT 94
[2021-01-09 08:40] VITALS: BP 113/68; PULSE 76; RESP 16; O2SAT 96
[2021-01-09 08:50] VITALS: BP 134/65; PULSE 65; RESP 16; O2SAT 98
[2021-01-09 09:00] VITALS: BP 123/73; PULSE 64; RESP 16; TEMP 36.2; O2SAT 97
[2021-01-09 15:08] VITALS: O2SAT 97
== END 2021-01-09 09:01 | disposition home or self-care (01) ==
LOC: OUTP 07:01
PROVIDERS: PCP Nurse Practitioner Family; Visit Provider Internal Medicine Gastroenterology
PROC: 0DJD8ZZ Inspection of Lower Intestinal Tract, Via Natural or Artificial Opening Endoscopic (ICD-10-PCS; CPT 45378; principal; 2021-01-09 08:00)
DX: R19.4 Change in bowel habit (principal); R10.13 Epigastric pain; K64.0 First degree hemorrhoids; I25.10 Atherosclerotic heart disease of native coronary artery without angina pectoris; E78.5 Hyperlipidemia, unspecified; I10 Essential (primary) hypertension; J45.909 Unspecified asthma, uncomplicated; F41.9 Anxiety disorder, unspecified; I49.9 Cardiac arrhythmia, unspecified; Z86.14 Personal history of Methicillin resistant Staphylococcus aureus infection; Z79.82 Long term (current) use of aspirin; Z79.899 Other long term (current) drug therapy
CPT/HCPCS: 45378

== ENCOUNTER → 2021-03-13 07:57 | Outpatient (CLI) | payer OTHER, SELFPAY ==
--- NOTE | 2021-03-13 08:02 | XR_ITS ---
PROCEDURE: XR FOOT WT BEARING RT 3V CLINICAL INDICATION: pain COMPARISON: CR XR FOOT LT MIN 3V from 06/28/2020 CR XR FOOT WT BEARING LT 3V from 03/13/2021 FINDINGS: No fracture or dislocation. No lytic or blastic change. There is normal mineralization. The joint spaces are well-preserved. No significant degenerative/arthritic changes. No erosive changes evident. Other findings:None. IMPRESSION: No acute findings. Dictated by: Michael Whiting MD 03/14/2021 07:39 Michael Whiting MD in [place] 03/14/2021 07:39
--- NOTE | 2021-03-13 08:02 | XR_ITS ---
PROCEDURE: XR FOOT WT BEARING LT 3V CLINICAL INDICATION: pain COMPARISON: CR XR FOOT LT MIN 3V from 06/28/2020 FINDINGS: No fracture or dislocation. No lytic or blastic change. There is normal mineralization. The joint spaces are well-preserved. No significant degenerative/arthritic changes. No erosive changes evident. Other findings:None. IMPRESSION: No acute findings. Dictated by: Michael Whiting MD 03/14/2021 07:38 Michael Whiting MD in [place] 03/14/2021 07:38
== END ==
PROVIDERS: Visit Provider Nurse Practitioner
DX: M79.672 Pain in left foot (principal); M79.671 Pain in right foot
CPT/HCPCS: 73630

== ENCOUNTER 2021-04-10 19:52 | Emergency (ER) | payer OTHER, SELFPAY ==
[2021-04-10 19:55] VITALS: BP 146/91; PULSE 68; RESP 19; TEMP 36.6; O2SAT 98; BMI 41.5
--- NOTE | 2021-04-10 19:59 | XR_ITS ---
PROCEDURE INFORMATION: Exam: XR Left Knee Exam date and time: 04/10/2021 7:59 PM Age: 35 years old Clinical indication: Patient HX: Twisted left knee earlier today. Persistent pain. Has been walking all day. TECHNIQUE: Imaging protocol: XR Left knee. Views: 3 views. COMPARISON: CR XR FOOT WT BEARING LT 3V 03/13/2021 8:13 AM FINDINGS: Bones/joints: Normal. Soft tissues: Normal. IMPRESSION: No acute findings.
--- NOTE | 2021-04-10 20:37 | HMH.EDUTC ---
[facility] [place] Imp[place]: K[place] sp[place] Qualifiers: Encounter type: initial encounter Involved ligament of knee: unspecified ligament Laterality: left Qualified Code(s): S83.92XA - Sprain of unspecified site of left knee, initial encounter Disposition: Home, Self-Care Condition on Discharge: Good Instructions: DI for Knee Sprain, Knee Sprain, How to Use a Knee Immobilizer Additional Instructions: *weight bearing as tolerated *RICE, Rest the extremity, Ice 15-20 minutes 3-4 times daily, Compress- wear the gerry wrap as discussed as much as possible to help reduce swelling and pain, Elevate the extremity when at rest *Gerry wrap/ Knee immobilizer is for support and help control swelling, use it except in the shower. Be sure that is not to tight but not to loose either *Elevate when resting *Ibuprofen every 6-8 hours as needed for pain an inflammation. If need something more can take Tylenol in between doses of Ibuprofen to help Immediately follow up with your family doctor for new or worsening of symptoms, or no noticeable improvement over the next 3-5 days Follow up with Family Doctor for referral to Orthopedics if needed Return if needed Referrals: Lashon Schmidt APRN [Primary Care Provider] - As needed Robbi Dong JR, MD [Physician] - Forms: Work/School Release Time of Disposition: 20:48 Medical Decision Making - Thierno Inquiry Pt receiving controlled substance: No Thierno was queried for this patient: No Vital Signs: 04/10/21 19:55 Temperature 97.9 F Temperature Source Oral Pulse Rate [Right Brachial] 68 Respiratory Rate 19 Blood Pressure [Right Arm] 146/91 H Blood Pressure Mean [Right Arm] 109 Blood Pressure Source [Right Arm] Automatic Cuff Blood Pressure Position [Right Arm] Sitting 02 Sat by Pulse Oximetry 98 Oxygen Delivery Method Room Air Orders (Tests/Meds): ORDERS Category Date Time Status XR knee LT 3V Stat Exams 04/10/21 19:59 Taken - Radiology Data #1 Image(s): Knee Image Reviewed: Yes I have reviewed radiologist's interpretation IMPRESSION: No acute findings. [facility] [place] - General Stated complaint: AO 04/10 fell injured L Knee Time Seen by Provider: 04/10/21 20:37 Mode of Arrival: Ambulatory Source of Information: Patient Limitations: No Limitations Description of Symptoms (Recalled from Triage Doc. by RN): PATIENT C/O PAIN TO LEFT KNEE AFTER FALLING ON IT TODAY HEENT Symptoms (Recalled from RN notes): No Resp Symptoms (Recalled from RN notes): No Skin Symptoms (Recalled from RN notes): No MS Symptoms (Recalled from RN notes): Yes Functional Status (Recalled from RN notes): WNL - History of Present Illness Provider Complaint: Patient states that he feel earlier today on his left knee States that when he got up it hurt to try to walk on it but then was ok States that as the day went on the pain started hurting again and felt like his knee was going to buckle when he would walk on it and put weight on it States that this evening it was still hurting so he came in to get it checked out - Related Data Home Medications Medication Instructions Recorded Confirmed paroxetine HCl 12.5 mg 12.5 mg PO DAILY tab 08/02/20 04/10/21 tablet,extended release 24 hr bisoproloL fumarate [Bisoprolol 10 mg PO BID 01/09/21 04/10/21 10mg Tablet] meloxicam 7.5 mg tablet 7.5 mg PO DAILY tab 03/20/21 04/10/21 Amlodipine Besylate 5 mg PO DAILY 04/10/21 04/10/21 Previous Rx's Medication Instructions Recorded atorvastatin 40 mg tablet 40 mg PO DAILY #30 tab 12/20/20 Allergies Allergy/AdvReac Type Severity Reaction Status Date / Time No Known Allergies Allergy Verified 03/20/21 11:44 - Worker's Comp Is this a Worker's Comp case?: No [facility] History - Hepatitis A Screen Drug use history?: No High risk sexual behaviors?: No History of sexually transmitted infection?: No Currently employed?: No Childcare worker?: No Do you have indoor plumbing?: Yes D
[2021-04-10 20:48] VITALS: BP 146/91; PULSE 68; RESP 19; TEMP 36.6; O2SAT 98
== END 2021-04-10 21:00 | disposition home or self-care (01) ==
PROVIDERS: Emergency Provider Nurse Practitioner; PCP Nurse Practitioner Family
DX: S83.92XA Sprain of unspecified site of left knee, initial encounter (principal); W01.0XXA Fall on same level from slipping, tripping and stumbling without subsequent striking against object, initial encounter; Y92.019 Unspecified place in single-family (private) house as the place of occurrence of the external cause; F41.8 Other specified anxiety disorders; I10 Essential (primary) hypertension; E78.5 Hyperlipidemia, unspecified; Z87.891 Personal history of nicotine dependence
CPT/HCPCS: 29505; 73562; 99202; G0463

== ENCOUNTER → 2021-04-21 13:18 | Outpatient (CLI) | payer OTHER, SELFPAY ==
--- NOTE | 2021-04-21 13:21 | MR_ITS ---
PROCEDURE INFORMATION: Exam: MR Left Lower Extremity Joint Without Contrast, Knee Exam date and time: 04/21/2021 1:21 PM Age: 35 years old Clinical indication: Pain; Knee; Left; Prior surgery; Surgery date: 6+ months; Additional info: Instability of left knee joint. Twisted knee x2wks ago and felt a pop. Instability of knee. Knee swelling. HX knee surgery 99. Prior x-ray 04-10-21 TECHNIQUE: Imaging protocol: MR of the Left lower extremity joint without contrast. Exam focused on the knee. COMPARISON: CR XR KNEE LT 3V 04/10/2021 8:01 PM FINDINGS: Bones and cartilage: Lateral patellar tilt and subluxation. Focal marrow signal alteration with heterogeneous overlying marrow at the median ridge of the patella. This may represent posttraumatic injury. The thickness of the overlying cartilage remains intact. No other chondral or marrow signal abnormalities. Joint spaces: Physiologic amounts of suprapatellar joint fluid. Medial meniscus: Unremarkable. No tear. Lateral meniscus: Unremarkable. No tear. Anterior cruciate ligament: Unremarkable. No tear. Posterior cruciate ligament: Unremarkable. No tear. Medial capsule and supporting structures: Unremarkable. No tear. Lateral capsule and supporting structures: Unremarkable. No tear. Extensor mechanism of knee: Unremarkable. No tear. Muscles: Unremarkable. Soft tissues: Edema involving the superolateral aspect of Hoffa's fat. IMPRESSION: 1. Focal marrow signal alteration with heterogeneous overlying marrow at the median ridge of the patella which may be posttraumatic in nature. 2. Lateral patellar tilt and subluxation. 3. Possible altered patellar tracking with edema involving the superolateral aspect of Hoffa's fat noted. 4. No other significant internal derangement.
--- NOTE | 2021-04-21 13:25 | XR_ITS ---
PROCEDURE: XR ORBIT BILATERAL MIN 4V CLINICAL INDICATION: RULE OUT METAL FOREIGN BODY FOR MRI COMPARISON: No exams were available for comparison TECHNIQUE: AP views are obtained of the orbits with the patient looking up and down. FINDINGS: No radio opaque foreign bodies evident. IMPRESSION: No radio opaque orbital foreign body identified. Dictated by: Michael Whiting MD 04/21/2021 13:38 Michael Whiting MD in [place] 04/21/2021 13:38
== END ==
PROVIDERS: PCP Nurse Practitioner Family; Visit Provider Nurse Practitioner Family
DX: H05.53 Retained (old) foreign body following penetrating wound of bilateral orbits (principal); S89.92XD Unspecified injury of left lower leg, subsequent encounter; M25.362 Other instability, left knee; Z98.890 Other specified postprocedural states
CPT/HCPCS: 70200; 73721

== ENCOUNTER 2021-05-16 09:29 | Emergency (ER) | payer OTHER, SELFPAY ==
[2021-05-16 10:39] VITALS: BP 135/83; PULSE 76; RESP 18; TEMP 36.8; O2SAT 99; BMI 41.5
--- NOTE | 2021-05-16 10:53 | HMH.EDUTC ---
[facility] [place] Disposition Clinical Impression: Strep throat, Bronchitis Disposition: Home, Self-Care Condition on Discharge: Good Instructions: DI for Pharyngitis/Tonsillopharyngitis -- Adult, DI for Acute Bronchitis Additional Instructions: Drink plenty of fluids. Take tylenol or ibuprofen for pain or fever. Take the medications as directed. Follow up with your regular doctor. GO TO THE ER FOR ANY WORSENING SYMPTOMS Quarantine until you know the results of your covid-19 test. If it is positive, the health department should call you and give you further instructions about your length of Quarantine and other things. Notify your school or workplace of your results and follow their instructions regarding return to work/school. The cough medication (promethazine dm) will make you drowsy, so don't drive or operate heavy machinery after taking it. Prescriptions: Promethazine/Dextromethorphan [Promethazine-Dm Syrup] 5 ml PO Q6HP PRN #240 ml PRN Reason: Cough [email or web address] Amoxicillin/Potassium Clav [Augmentin 875-125 Tablet] 1 tab PO Q12H 10 Days #20 tab Transmission Status: P[facility] to [email or web address] methylPREDNISolone [Medrol] 4 mg PO DIRECTED 6 Days #21 packet Transmission Status[email or web address] Referrals: Lashon Schmidt APRN [Primary Care Provider] - Forms: Work/School Release Time of Disposition: 11:36 Medical Decision Making - Medical Records Medical records reviewed: No: I reviewed the patient's medical records. - Thierno Inquiry Pt receiving controlled substance: No Vital Signs: 05/16/21 10:39 Temperature 98.2 F Temperature Source Oral Pulse Rate [Left] 76 Respiratory Rate 18 Blood Pressure [Right Arm] 135/83 Blood Pressure Mean [Right Arm] 100 02 Sat by Pulse Oximetry 99 - Lab Data Lab results reviewed: Yes: I reviewed the patient's lab results. Lab Results 05/16/21 10:33: Strep Scn Rapid Clinic Negative Orders (Tests/Meds): ORDERS Category Date Time Status Covid-19 Nasal PCR ([facility]) Routine Lab 05/16/21 10:33 Received Strep Screen Confirmation Routine Micro 05/16/21 10:33 Received [facility] [place] HPI - General Stated complaint: cough, diarrhea Time Seen by Provider: 05/16/21 10:53 Mode of Arrival: Ambulatory Source of Information: Patient Limitations: No Limitations Description of Symptoms (Recalled from Triage Doc. by RN): pt c/o a CENTENO, diarrhea, chills, fever, fatigue, cough and congestion. x2 days HEENT Symptoms (Recalled from RN notes): Yes (CENTENO and congestion) Resp Symptoms (Recalled from RN notes): Yes (cough) Skin Symptoms (Recalled from RN notes): No MS Symptoms (Recalled from RN notes): No Functional Status (Recalled from RN notes): wnl - History of Present Illness Provider Complaint: He states that he has felt bad for the past 2 days. He has a sore throat, sinus congestion, chest congestion, a productive cough. He denies any known exposure to covid-19. His daughter has similar symptoms. - Related Data Home Medications Medication Instructions Recorded Confirmed paroxetine HCl 12.5 mg 12.5 mg PO DAILY tab 08/02/20 04/21/21 tablet,extended release 24 hr bisoproloL fumarate [Bisoprolol 10 mg PO BID 01/09/21 04/21/21 10mg Tablet] meloxicam 7.5 mg tablet 7.5 mg PO DAILY tab 03/20/21 04/21/21 Amlodipine Besylate 5 mg PO DAILY 04/10/21 04/21/21 aspirin 81 mg tablet,delayed 81 mg PO DAILY 04/21/21 04/21/21 release Previous Rx's Medication Instructions Recorded atorvastatin 40 mg tablet 40 mg PO DAILY #30 tab 12/20/20 Amoxicillin/Potassium Clav 1 tab PO Q12H 10 Days #20 tab 05/16/21 [Augmentin 875-125 Tablet] Promethazine/Dextromethorphan 5 ml PO Q6HP PRN #240 ml 05/16/21 [Promethazine-Dm Syrup] methylPREDNISolone [Medrol] 4 mg PO DIRECTED 6 Days #21 05/16/21 packet Allergies Allergy/AdvReac Type Severity Reaction Status Date / Time No Known Allergies Allergy
[2021-05-16 11:07] LABS: UTC Strep Screen (Rapid) Negative (Negative)
[2021-05-16 12:02] VITALS: BP 135/83; PULSE 76; RESP 18; TEMP 36.8
== END 2021-05-16 12:04 | disposition home or self-care (01) ==
PROVIDERS: Emergency Provider Nurse Practitioner Family; PCP Nurse Practitioner Family
DX: J02.0 Streptococcal pharyngitis (principal); J20.9 Acute bronchitis, unspecified; F41.8 Other specified anxiety disorders; E78.5 Hyperlipidemia, unspecified; I10 Essential (primary) hypertension; Z87.891 Personal history of nicotine dependence
CPT/HCPCS: 87880; 99203; C9803; G0463; U0003; U0005

== ENCOUNTER → 2021-06-01 13:22 | Outpatient (CLI) | payer OTHER, SELFPAY | PROVIDERS: Visit Provider Nurse Practitioner | DX: Z20.822 Contact with and (suspected) exposure to COVID-19 (principal) | CPT/HCPCS: C9803; U0003; U0005 ==

== ENCOUNTER → 2021-06-16 08:23 | Outpatient (CLI) | payer OTHER, SELFPAY | PROVIDERS: PCP Nurse Practitioner Family; Visit Provider Nurse Practitioner | DX: U07.1 COVID-19 (principal) | CPT/HCPCS: C9803; U0003; U0005 ==

== ENCOUNTER → 2021-07-14 15:01 | Outpatient (CLI) | payer OTHER, SELFPAY | PROVIDERS: PCP Nurse Practitioner Family; Visit Provider Nurse Practitioner | DX: U07.1 COVID-19 (principal) | CPT/HCPCS: C9803; U0003; U0005 ==

== ENCOUNTER 2021-11-06 09:44 | Emergency (ER) | payer OTHER, SELFPAY ==
[2021-11-06 09:50] VITALS: BP 143/83; PULSE 109; RESP 19; TEMP 36.8; O2SAT 97; BMI 39.9
--- NOTE | 2021-11-06 10:04 | HMH.EDUTC ---
[facility] [place] Disposition Clinical Impression: Migraine Qualifiers: Migraine type: unspecified Status migrainosus presence: without status migrainosus Intractability: not intractable Qualified Code(s): G43.909 - Migraine, unspecified, not intractable, without status migrainosus Disposition: Home, Self-Care Condition on Discharge: Good Instructions: DI for Migraine, Migraine -- Adult Additional Instructions: Go home lay down and sleep off remainder of migraine headache Follow up with your Family Doctor if no improvement or any worsening of symptoms Return if needed Straight to ER if any life threatening symptoms Prescriptions: Ondansetron [Zofran 4mg ODT] 4 mg PO TIDP PRN #10 tab PRN Reason: Nausea Transmission Status: Pending to [id number] Referrals: Lashon Schmidt APRN [Primary Care Provider] - As needed Time of Disposition: 10:42 Medical Decision Making - Thierno Inquiry Pt receiving controlled substance: No Thierno was queried for this patient: No Vital Signs: 11/06/21 09:50 11/06/21 10:20 Temperature 98.3 F 98.3 F Temperature Source Oral Pulse Rate 109 H Pulse Rate [Right Brachial] 109 H Respiratory Rate 19 19 Blood Pressure 143/83 H Blood Pressure [Right Arm] 143/83 H Blood Pressure Mean [Right Arm] 103 Blood Pressure Source [Right Arm] Automatic Cuff Blood Pressure Position [Right Arm] Sitting 02 Sat by Pulse Oximetry 97 Oxygen Delivery Method Room Air Orders (Tests/Meds): ED MEDICATIONS Discontinued Medications Generic Name Dose Route Start Last Admin Trade Name Freq PRN Reason Stop Dose Admin Ketorolac Tromethamine 60 mg 11/06/21 10:11/06/21 10:20 Ketorolac 60mg/2ml Vial IM 11/06/21 10:09 60 mg ONCE ONE Administration Methylprednisolone Sodium Succinate 125 mg 11/06/21 10:11/06/21 10:20 Methylprednisolone Sod Succ 125mg Vial IM 11/06/21 10:09 125 mg ONCE ONE Administration Ondansetron HCl 4 mg 11/06/21 10:08 11/06/21 10:20 Ondansetron 4mg Odt SL 11/06/21 10:09 4 mg ONCE ONE Administration Medical Decision Narrative: Patient driving unable to take Benadryl Patient states that migraine is much better and almost gone nausea much improved [facility] [place] HPI - General Stated complaint: h/a, vomiting Time Seen by Provider: 11/06/21 10:04 Mode of Arrival: Ambulatory Source of Information: Patient Limitations: No Limitations Description of Symptoms (Recalled from Triage Doc. by RN): PATIENT C/O HEADACHE, NAUSEA AND VOMITING SINCE YESTERDAY HEENT Symptoms (Recalled from RN notes): Yes Resp Symptoms (Recalled from RN notes): No Skin Symptoms (Recalled from RN notes): No MS Symptoms (Recalled from RN notes): No Functional Status (Recalled from RN notes): WNL - History of Present Illness Provider Complaint: Patient states that he started last night with a headache States that he took some tylenol and went to bed and woke up this morning still with nagging headache State that he got to work and was still having headache and then started having nausea States that he feels like his headache is trying to become a migraine and wanted to come in before it got too bad Denies worse headache of his life and denies vision changes - Related Data Home Medications Medication Instructions Recorded Confirmed paroxetine HCl 12.5 mg 12.5 mg PO DAILY tab 08/02/20 04/21/21 tablet,extended release 24 hr bisoproloL fumarate [Bisoprolol 10 mg PO BID 01/09/21 04/21/21 10mg Tablet] meloxicam 7.5 mg tablet 7.5 mg PO DAILY tab 03/20/21 04/21/21 Amlodipine Besylate 5 mg PO DAILY 04/10/21 04/21/21 aspirin 81 mg tablet,delayed 81 mg PO DAILY 04/21/21 04/21/21 release Previous Rx's Medication Instructions Recorded atorvastatin 40 mg tablet 40 mg PO DAILY #30 tab 12/20/20 Amoxicillin/Potassium Clav 1 tab PO Q12H 10 Days #20 tab 05/16/21 [Augmentin 875-125 Tablet] Promethazine/Dextromethorphan 5 ml PO Q6HP PRN #240 ml 05/16/21 [Promethazin
[2021-11-06 10:20] VITALS: BP 143/83; PULSE 109; RESP 19; TEMP 36.8; O2SAT 97
== END 2021-11-06 10:46 | disposition home or self-care (01) ==
PROVIDERS: Emergency Provider Nurse Practitioner; PCP Nurse Practitioner Family
DX: G43.909 Migraine, unspecified, not intractable, without status migrainosus (principal)
CPT/HCPCS: 96372; 99212; G0463

== ENCOUNTER 2021-11-20 11:32 | Emergency (ER) | payer OTHER, SELFPAY ==
[2021-11-20 11:50] VITALS: BP 141/91; PULSE 86; RESP 19; TEMP 36.8; O2SAT 98; BMI 36.3
--- NOTE | 2021-11-20 12:22 | HMH.EDUTC ---
[facility] [place] Disposition Clinical Impression: Migraine Qualifiers: Migraine type: unspecified Status migrainosus presence: without status migrainosus Intractability: not intractable Qualified Code(s): G43.909 - Migraine, unspecified, not intractable, without status migrainosus Disposition: Home, Self-Care Condition on Discharge: Good Instructions: Migraine -- Adult, DI for Migraine Additional Instructions: Go home lay down and sleep off remainder of migraine headache Make sure to follow up with your Family Doctor for further treatment and evaluation Return if needed Straight to ER if any life threatening symptoms Referrals: Lashon Schmidt APRN [Primary Care Provider] - As needed Forms: Work/School Release Medical Decision Making - Thierno Inquiry Pt receiving controlled substance: No Thierno was queried for this patient: No Vital Signs: 11/20/21 11:50 11/20/21 12:51 Temperature 98.3 F 98.3 F Temperature Source Oral Pulse Rate 86 Pulse Rate [Right Brachial] 86 Respiratory Rate 19 19 Blood Pressure 141/91 H Blood Pressure [Right Arm] 141/91 H Blood Pressure Mean [Right Arm] 107 Blood Pressure Source [Right Arm] Automatic Cuff Blood Pressure Position [Right Arm] Sitting 02 Sat by Pulse Oximetry 98 Oxygen Delivery Method Room Air Orders (Tests/Meds): ED MEDICATIONS Discontinued Medications Generic Name Dose Route Start Last Admin Trade Name Ken PRN Reason Stop Dose Admin Ketorolac Tromethamine 60 mg 11/20/21 12:27 11/20/21 12:51 Ketorolac 60mg/2ml Vial IM 11/20/21 12:28 60 mg ONCE ONE Administration Methylprednisolone Sodium Succinate 125 mg 11/20/21 12:27 11/20/21 12:51 Methylprednisolone Sod Succ 125mg Vial IM 11/20/21 12:28 125 mg ONCE ONE Administration Ondansetron HCl 4 mg 11/20/21 12:27 11/20/21 12:51 Ondansetron 4mg Odt SL 11/20/21 12:28 4 mg ONCE ONE Administration Medical Decision Narrative: Patient states that migraine is much better and almost gone [facility] [place] HPI - General Stated complaint: migraine Time Seen by Provider: 11/20/21 12:22 Mode of Arrival: Ambulatory Source of Information: Patient Limitations: No Limitations Description of Symptoms (Recalled from Triage Doc. by RN): PATIENT C/O MIGRAINE X 2 DAYS HEENT Symptoms (Recalled from RN notes): Yes Resp Symptoms (Recalled from RN notes): No Skin Symptoms (Recalled from RN notes): No MS Symptoms (Recalled from RN notes): No Functional Status (Recalled from RN notes): WNL - History of Present Illness Provider Complaint: Patient states that he use to have Migraines but they had been better but has had several over the last couple of months States that he felt it coming on yesterday and tried several over the counter medications but they didnt work and today he was still having it so he came in to get the injections to help states that they helped last time Denies worst headache of his life - Related Data Home Medications Medication Instructions Recorded Confirmed paroxetine HCl 12.5 mg 12.5 mg PO DAILY tab 08/02/20 04/21/21 tablet,extended release 24 hr bisoproloL fumarate [Bisoprolol 10 mg PO BID 01/09/21 04/21/21 10mg Tablet] meloxicam 7.5 mg tablet 7.5 mg PO DAILY tab 03/20/21 04/21/21 Amlodipine Besylate 5 mg PO DAILY 04/10/21 04/21/21 aspirin 81 mg tablet,delayed 81 mg PO DAILY 04/21/21 04/21/21 release Previous Rx's Medication Instructions Recorded atorvastatin 40 mg tablet 40 mg PO DAILY #30 tab 12/20/20 Amoxicillin/Potassium Clav 1 tab PO Q12H 10 Days #20 tab 05/16/21 [Augmentin 875-125 Tablet] Promethazine/Dextromethorphan 5 ml PO Q6HP PRN #240 ml 05/16/21 [Promethazine-Dm Syrup] methylPREDNISolone [Medrol] 4 mg PO DIRECTED 6 Days #21 05/16/21 packet Ondansetron [Zofran 4mg ODT] 4 mg PO TIDP PRN #10 tab 11/06/21 Allergies Allergy/AdvReac Type Severity Reaction Status Date / Time No Known Allergies Allergy Verified 04/21/21 11:42
[2021-11-20 12:51] VITALS: BP 141/91; PULSE 86; RESP 19; TEMP 36.8; O2SAT 98
== END 2021-11-20 13:12 | disposition home or self-care (01) ==
PROVIDERS: Emergency Provider Nurse Practitioner; PCP Nurse Practitioner Family
DX: G43.909 Migraine, unspecified, not intractable, without status migrainosus (principal); I10 Essential (primary) hypertension; I25.10 Atherosclerotic heart disease of native coronary artery without angina pectoris; I49.9 Cardiac arrhythmia, unspecified; E78.5 Hyperlipidemia, unspecified; J45.909 Unspecified asthma, uncomplicated; F32.A Depression, unspecified; F41.9 Anxiety disorder, unspecified; Z79.52 Long term (current) use of systemic steroids; Z79.82 Long term (current) use of aspirin; Z79.899 Other long term (current) drug therapy; Z86.14 Personal history of Methicillin resistant Staphylococcus aureus infection; Z87.891 Personal history of nicotine dependence
CPT/HCPCS: 96372; 99213; G0463

== ENCOUNTER → 2021-11-22 13:04 | Outpatient (CLI) | payer OTHER, SELFPAY ==
--- NOTE | 2021-11-22 13:07 | XR_ITS ---
FINAL REPORT CLINICAL HISTORY: RT wrist pain FINDINGS: RIGHT WRIST Three views demonstrate no acute fracture or dislocation. The visualized joint spaces are normally aligned. The soft tissues are unremarkable. IMPRESSION: No acute bony abnormality. Reviewed, Interpreted and Dictated by Carlos Beavers III, MD Transcribed by Fiona Escamilla Authenticated and [facility]
--- NOTE | 2021-11-22 13:07 | XR_ITS ---
FINAL REPORT CLINICAL HISTORY: LT wrist pain FINDINGS: LEFT WRIST Three views demonstrate no acute fracture or dislocation. The visualized joint spaces are normally aligned. The soft tissues are unremarkable. IMPRESSION: No acute bony abnormality. Reviewed, Interpreted and Dictated by Carlos Beavers III, MD Transcribed by Fiona Escamilla Authenticated and [facility]
== END ==
PROVIDERS: PCP Nurse Practitioner Family; Visit Provider Orthopaedic Surgery
DX: M25.532 Pain in left wrist (principal); M25.531 Pain in right wrist
CPT/HCPCS: 73110

== ENCOUNTER 2022-02-04 17:27 | Emergency (ER) | payer OTHER, SELFPAY ==
--- NOTE | 2022-02-04 17:43 | XR_ITS ---
PROCEDURE INFORMATION: Exam: XR Left Ribs with PA Chest Exam date and time: 02/04/2022 5:40 PM Age: 36 years old Clinical indication: Painful respiration and other: Cough; Additional info: Cough and left upper rib pain TECHNIQUE: Imaging protocol: Radiologic exam of the Left ribs with PA chest. Views: 3 views COMPARISON: CR XR CHEST PORTABLE 07/31/2020 10:11 PM FINDINGS: Lungs: No acute pulmonary findings. No pulmonary consolidation. Lung volumes within normal limits. Calcified granuloma at the left lung apex. Pleural spaces: Unremarkable. No significant pleural effusion. No pneumothorax. Heart/Mediastinum: The cardiac silhouette is normal. Bones/joints: Left clavicle fixation plate and screws. No findings of breakage or loosening of hardware. No definite or displaced rib fracture detected. Soft tissues: No acute findings in the soft tissues. No soft tissue emphysema. IMPRESSION: 1. No acute rib fracture detected. 2. No acute cardiopulmonary findings. 3. Additional nonemergency and chronic findings as above.
[2022-02-04 17:45] VITALS: BP 132/97; PULSE 129; RESP 24; TEMP 36.6; O2SAT 99; BMI 40.0
--- NOTE | 2022-02-04 17:57 | EXP.UTC ---
Discharge Plan Disposition Patient Disposition: Home, Self-Care Condition: Good Prescriptions Prescriptions: New promethazine-DM 6.25-15 mg/5 mL syrup 5 ml PO Q6H PRN (Reason: cough) Qty: 118 0RF azithromycin 250 mg tablet See Rx Instructions .ROUTE .COMPLEX Qty: 6 0RF Rx Instructions: For 250 mg dose pack: take 500 mg today (day 1), then 250 mg for 4 days (days 2-5) albuterol sulfate 90 mcg/actuation HFA aerosol inhaler 1 inh inhalation Q6H PRN (Reason: shortness of breath or wheezing) Qty: 8.5 0RF No Action meloxicam 7.5 mg tablet 7.5 mg PO DAILY paroxetine HCl 12.5 mg tablet extended release 24 hr 12.5 mg PO DAILY Label Comments: TAKE 1 TABLET BY MOUTH ONCE DAILY IN THE MORNING FOR 30 DAYS aspirin 81 mg tablet,delayed release (DR/EC) 81 mg PO DAILY atorvastatin 40 mg tablet 40 mg PO DAILY Qty: 30 5RF bisoprolol fumarate 10 MG tablet 10 mg PO BID promethazine-DM 120 ML syrup 5 ml PO Q6HP PRN (Reason: Cough) Qty: 240 0RF methylprednisolone 4 MG tablets,dose pack 4 mg PO DIRECTED 6 Days Qty: 21 0RF amoxicillin-pot clavulanate 1 EACH tablet 1 tab PO Q12H 10 Days Qty: 20 0RF ondansetron 4 MG tablet,disintegrating 4 mg PO TIDP PRN (Reason: Nausea) Qty: 10 0RF amlodipine 5 MG tablet 5 mg PO DAILY Rx Instructions: Take 1 tablet by mouth once daily Referrals Follow up/Referrals: Lashon Schmidt APRN [Primary Care Provider] - See instructions Activity Restrictions/Add. Instructions Additional Instructions/Restrictions: Take medication as prescribed. Follow up with PCP if symptoms persist or worsen. Clinical Impressions Clinical Impression: URI (upper respiratory infection) Instructions Patient Instructions: Acute Bronchitis, Preventing the Spread of Coronavirus Discharge Instructions Discharge ED Provider: Bailee Solitario [facility] [place] HPI General Stated complaint: cough,chills,tiki weak Time Seen by Provider: 02/04/22 17:57 History of Present Illness Provider Complaint: Pt relates that his daughter was sick last week with cold symptoms and he has been sick the last couple of days. Pt states that he is unable to sleep lying flat as he feels like he is smothering. He further relates that he has coughed so much that his ribs on the left side are hurting. Pt states that he has been having a non-productive cough. Pt states that his sinus congestion and drainage are a little better and drainage is clear. Related Data Home Medications Medication Instructions Recorded Confirmed paroxetine HCl 12.5 mg 12.5 mg PO DAILY Depression 08/02/20 11/22/21 tablet,extended release 24 hr bisoprolol fumarate 10 mg tablet 10 mg PO BID Hypertension 01/09/21 11/22/21 meloxicam 7.5 mg tablet 7.5 mg PO DAILY FOOT 03/20/21 11/22/21 amlodipine 5 mg tablet 5 mg PO DAILY Hypertension 04/10/21 11/22/21 aspirin 81 mg tablet,delayed 81 mg PO DAILY 04/21/21 11/22/21 release Previous Rx's Medication Instructions Recorded atorvastatin 40 mg tablet 40 mg PO DAILY Cholesterol #30 tabs 12/20/20 amoxicillin 875 mg-potassium 1 tab PO Q12H 10 days #20 tabs 05/16/21 clavulanate 125 mg tablet methylprednisolone 4 mg tablets in 4 mg PO DIRECTED 6 days #21 05/16/21 a dose pack packets promethazine-DM 6.25 mg-15 mg/5 mL 5 ml PO Q6HP PRN Cough #240 mL 05/16/21 oral syrup ondansetron 4 mg disintegrating 4 mg PO TIDP PRN Nausea #10 tabs 11/06/21 tablet albuterol sulfate 90 mcg/actuation 1 inh inhalation Q6H PRN shortness 02/04/22 aerosol inhaler of breath or wheezing #8.5 grams azithromycin 250 mg tablet See Rx Instructions PO .COMPLEX #6 02/04/22 tabs promethazine-DM 6.25 mg-15 mg/5 mL 5 ml PO Q6H PRN cough #118 mL 02/04/22 oral syrup Allergies Allergy/AdvReac Type Severity Reaction Status Date / Time No Known Allergies Allergy Verified 11/22/21 13:52 [facility] Medical History (Updated 02/04/22 @ 18:36 by Bailee Boucher
[2022-02-04 18:43] VITALS: BP 132/97; PULSE 129; RESP 24; TEMP 36.6; O2SAT 99
== END 2022-02-04 18:46 | disposition home or self-care (01) ==
PROVIDERS: Emergency Provider Nurse Practitioner Family; PCP Nurse Practitioner Family
DX: J06.9 Acute upper respiratory infection, unspecified (principal); R05.9 Cough, unspecified; R68.83 Chills (without fever); R09.81 Nasal congestion; R53.1 Weakness
CPT/HCPCS: 71101; 96372; 99212; C9803; G0463; U0003; U0005

== ENCOUNTER 2022-03-05 10:02 | Emergency (ER) | payer OTHER, SELFPAY ==
[2022-03-05 10:03] VITALS: BP 128/103; PULSE 97; RESP 20; TEMP 36.4; O2SAT 96; BMI 38.7
--- NOTE | 2022-03-05 10:06 | HMH.EDHA ---
Discharge Plan Disposition Patient Disposition: Home, Self-Care Condition: Good Chief Complaint: Headache Prescriptions Prescriptions: No Action meloxicam 7.5 mg tablet 7.5 mg PO DAILY paroxetine HCl 12.5 mg tablet extended release 24 hr 12.5 mg PO DAILY Label Comments: TAKE 1 TABLET BY MOUTH ONCE DAILY IN THE MORNING FOR 30 DAYS aspirin 81 mg tablet,delayed release (DR/EC) 81 mg PO DAILY atorvastatin 40 mg tablet 40 mg PO DAILY Qty: 30 5RF bisoprolol fumarate 10 MG tablet 10 mg PO BID promethazine-DM 120 ML syrup 5 ml PO Q6HP PRN (Reason: Cough) Qty: 240 0RF methylprednisolone 4 MG tablets,dose pack 4 mg PO DIRECTED 6 Days Qty: 21 0RF amoxicillin-pot clavulanate 1 EACH tablet 1 tab PO Q12H 10 Days Qty: 20 0RF ondansetron 4 MG tablet,disintegrating 4 mg PO TIDP PRN (Reason: Nausea) Qty: 10 0RF amlodipine 5 MG tablet 5 mg PO DAILY Rx Instructions: Take 1 tablet by mouth once daily promethazine-DM 6.25-15 mg/5 mL syrup 5 ml PO Q6H PRN (Reason: cough) Qty: 118 0RF azithromycin 250 mg tablet See Rx Instructions .ROUTE .COMPLEX Qty: 6 0RF Rx Instructions: For 250 mg dose pack: take 500 mg today (day 1), then 250 mg for 4 days (days 2-5) albuterol sulfate 90 mcg/actuation HFA aerosol inhaler 1 inh inhalation Q6H PRN (Reason: shortness of breath or wheezing) Qty: 8.5 0RF Activity Restrictions/Add. Instructions Additional Instructions/Restrictions: Please return immediately to the emergency department if you worsen in any way. Follow-up with your primary care doctor if you do not feel better within the next 2 to 3 days. Clinical Impressions Clinical Impression: Headache Qualifiers: Headache type: unspecified Headache chronicity pattern: acute headache Stand Alone Forms Stand Alone Forms: Work/School Release Instructions Patient Instructions: DI for Headache Discharge ED Provider: Jaime Carter Headache HPI General Chief Complaint: Headache Stated Complaint: headache,dizzy,vision blurred Time Seen by Provider: 03/05/22 10:06 Mode of Arrival: Ambulatory Source of Information: Patient History of Present Illness HPI Narrative: The patient presents to the emergency department complaining of a sudden onset headache at 9 AM today. This is associated with some neck pain and blurred vision. The patient denies a history of aneurysms. He denies fever. Related Data Home Medications Medication Instructions Recorded Confirmed paroxetine HCl 12.5 mg 12.5 mg PO DAILY Depression 08/02/20 11/22/21 tablet,extended release 24 hr bisoprolol fumarate 10 mg tablet 10 mg PO BID Hypertension 01/09/21 11/22/21 meloxicam 7.5 mg tablet 7.5 mg PO DAILY FOOT 03/20/21 11/22/21 amlodipine 5 mg tablet 5 mg PO DAILY Hypertension 04/10/21 11/22/21 aspirin 81 mg tablet,delayed 81 mg PO DAILY 04/21/21 11/22/21 release Previous Rx's Medication Instructions Recorded atorvastatin 40 mg tablet 40 mg PO DAILY Cholesterol #30 tabs 12/20/20 amoxicillin 875 mg-potassium 1 tab PO Q12H 10 days #20 tabs 05/16/21 clavulanate 125 mg tablet methylprednisolone 4 mg tablets in 4 mg PO DIRECTED 6 days #21 05/16/21 a dose pack packets promethazine-DM 6.25 mg-15 mg/5 mL 5 ml PO Q6HP PRN Cough #240 mL 05/16/21 oral syrup ondansetron 4 mg disintegrating 4 mg PO TIDP PRN Nausea #10 tabs 11/06/21 tablet albuterol sulfate 90 mcg/actuation 1 inh inhalation Q6H PRN shortness 02/04/22 aerosol inhaler of breath or wheezing #8.5 grams azithromycin 250 mg tablet See Rx Instructions PO .COMPLEX #6 02/04/22 tabs promethazine-DM 6.25 mg-15 mg/5 mL 5 ml PO Q6H PRN cough #118 mL 02/04/22 oral syrup Allergies Allergy/AdvReac Type Severity Reaction Status Date / Time No Known Allergies Allergy Verified 11/22/21 13:52 [facility] History Hepatitis A Screen Attestation statement:: This patient has been screened for Hepatitis A risk factor
--- NOTE | 2022-03-05 10:08 | PC.NURSE ---
ED MD AT BEDSIDE FOR EVALUATION
--- NOTE | 2022-03-05 10:10 | CT_ITS ---
FINAL REPORT CLINICAL HISTORY: Sudden onset Headache FINDINGS: Axial images of the head were obtained without contrast. Coronal reformatted images were also obtained.This study was performed with techniques to keep radiation doses as low as reasonably achievable (ALARA). Individualized dose reduction techniques using automated exposure control or adjustment of mA and/or kV according to the patient's size were employed. There is no evidence of intracranial hemorrhage or mass. The ventricular size is within normal limits. There is no evidence of shift of the midline structures. No abnormal extra axial fluid collection is identified. No skull abnormality is seen on the bone window images. IMPRESSION: No acute intracranial abnormality. Reviewed, Interpreted and Dictated by Carlos Beavers III, MD Transcribed by Tyson Santana Authenticated and [facility]
[2022-03-05 10:11] VITALS: PULSE 98; O2SAT 96
--- NOTE | 2022-03-05 10:27 | PC.NURSE ---
blood collected and sent to lab
[2022-03-05 10:34] LABS: Basophils # 0.2 K/mm3 (0-0.2); Basophils % 2.6 % (0.1-2.0); Eosinophils # 0.3 K/mm3 (0.0-0.4); Eosinophils % 5.6 % (0.1-12.0); Hematocrit 47.4 % (42.0-52.0); Lymphocytes # 2.2 K/mm3 (0.7-4.5); Lymphocytes % 38.5 % (10-50); Mean Corpuscular HGB Conc 33.7 g/dL (31.8-35.4); Mean Corpuscular Hemoglobin 30.3 pg (27.0-31.2); Mean Corpuscular Volume 89.9 fl (80-94); Mean Platelet Volume 7.5 fl (7.4-10.4); Monocytes # 0.4 K/mm3 (0.1-1.0); Monocytes % 6.8 % (1.7-9.3); Neutrophils # 2.7 K/mm3 (1.8-7.8); Neutrophils % 46.4 % (37.0-80.0); Platelet Count 282 K/mm3 (142-424); Red Blood Count 5.28 M/mm3 (4.60-6.20); Red Cell Distribution Width 13.3 % (11.5-17.5); White Blood Count 5.7 K/mm3 (4.8-10.8)
[2022-03-05 10:41] LABS: Anion Gap 13.3 mEq/L (5-15); Blood Urea Nitrogen 11 mg/dl (9-20); Calcium 8.9 mg/dl (8.4-10.2); Carbon Dioxide 29 mmol/L (22.0-30.0); Chloride 100 mmol/L (98-107); Creatinine Clearance Estimated 219 mL/min (50-200); Estimated Glomerular Filt Rate 109 ml/min (>60); GFR (African American) 132 ML/MIN (>60); Glucose 179 mg/dl (74-100); Potassium 4.3 mmoL/L (3.5-5.1); Sodium 138 mmol/L (136-145)
[2022-03-05 10:43] LABS: Activated Partial Thrombo Time 27.3 seconds (22.8-30.6); INR 0.95 (0.9-1.1); Prothrombin Time 10.3 seconds (10.1-12.5)
[2022-03-05 10:45] VITALS: PULSE 94; O2SAT 97
--- NOTE | 2022-03-05 10:54 | PC.NURSE ---
pt family reports pt has vomited, notified ER
--- NOTE | 2022-03-05 12:18 | PC.NURSE ---
PT SLEEPING SOUNDLY. AT BEDSIDE. NO DISTRESS NOTED
[2022-03-05 12:44] VITALS: BP 118/67; PULSE 80; RESP 18; TEMP 36.6; O2SAT 100
== END 2022-03-05 12:45 | disposition home or self-care (01) ==
PROVIDERS: Emergency Provider Emergency Medicine
DX: R51.9 Headache, unspecified (principal); M54.2 Cervicalgia; H53.8 Other visual disturbances; R06.02 Shortness of breath; R11.0 Nausea; R05.9 Cough, unspecified; I10 Essential (primary) hypertension; I25.10 Atherosclerotic heart disease of native coronary artery without angina pectoris; I49.9 Cardiac arrhythmia, unspecified; E78.5 Hyperlipidemia, unspecified; J45.909 Unspecified asthma, uncomplicated; F32.A Depression, unspecified; F41.9 Anxiety disorder, unspecified; F17.290 Nicotine dependence, other tobacco product, uncomplicated; Z79.51 Long term (current) use of inhaled steroids; Z79.52 Long term (current) use of systemic steroids; Z79.82 Long term (current) use of aspirin; Z79.899 Other long term (current) drug therapy; Z87.442 Personal history of urinary calculi; Z86.14 Personal history of Methicillin resistant Staphylococcus aureus infection
CPT/HCPCS: 70450; 80048; 85025; 85610; 85730; 96361; 96374; 96375; 99285; J2405

== ENCOUNTER 2022-03-26 10:50 | Emergency (ER) | payer OTHER, SELFPAY ==
[2022-03-26 10:50] VITALS: BP 141/90; PULSE 86; RESP 16; TEMP 36.7; O2SAT 98; BMI 37.1
--- NOTE | 2022-03-26 11:52 | EXP.UTC ---
Discharge Plan Disposition Patient Disposition: Home, Self-Care Condition: Good Prescriptions Prescriptions: No Action meloxicam 7.5 mg tablet 7.5 mg PO DAILY paroxetine HCl 12.5 mg tablet extended release 24 hr 12.5 mg PO DAILY Label Comments: TAKE 1 TABLET BY MOUTH ONCE DAILY IN THE MORNING FOR 30 DAYS aspirin 81 mg tablet,delayed release (DR/EC) 81 mg PO DAILY atorvastatin 40 mg tablet 40 mg PO DAILY Qty: 90 3RF bisoprolol fumarate 10 MG tablet 10 mg PO BID promethazine-DM 120 ML syrup 5 ml PO Q6HP PRN (Reason: Cough) Qty: 240 0RF methylprednisolone 4 MG tablets,dose pack 4 mg PO DIRECTED 6 Days Qty: 21 0RF amoxicillin-pot clavulanate 1 EACH tablet 1 tab PO Q12H 10 Days Qty: 20 0RF ondansetron 4 MG tablet,disintegrating 4 mg PO TIDP PRN (Reason: Nausea) Qty: 10 0RF amlodipine 5 MG tablet 5 mg PO DAILY Rx Instructions: Take 1 tablet by mouth once daily promethazine-DM 6.25-15 mg/5 mL syrup 5 ml PO Q6H PRN (Reason: cough) Qty: 118 0RF azithromycin 250 mg tablet See Rx Instructions .ROUTE .COMPLEX Qty: 6 0RF Rx Instructions: For 250 mg dose pack: take 500 mg today (day 1), then 250 mg for 4 days (days 2-5) albuterol sulfate 90 mcg/actuation HFA aerosol inhaler 1 inh inhalation Q6H PRN (Reason: shortness of breath or wheezing) Qty: 8.5 0RF Referrals Follow up/Referrals: Lashon Schmidt APRN [Primary Care Provider] - See instructions Activity Restrictions/Add. Instructions Additional Instructions/Restrictions: Drink extra fluids with and between meals. If you have difficulty drinking, try very small amounts of water or suck on ice chips. ? Avoid fruit juices, as these do not replace minerals and can actually increase diarrhea. ? Children and adults can use sports drinks to replenish electrolytes. Younger children and infants should use products formulated for children, like oral rehydration solutions. ? Eat food in small amounts and let your stomach recover. ? Get lots of rest. You may feel tired or weak. ? No greasy or fried foods for the next 24-48 hours BRAT diet Bananas Rice Apples and Cataract ? Make sure to drink plenty of liquids ? Return if needed ? Straight to ER if any life threatening symptoms ? You was given an outpatient order for diarrhea panel, please collect specimen and bring back to outpatient lab then call back to the [facility] or follow up with family doctor for results ? Follow up with family doctor in the next 48-72 hours if no improvement or any worsening of symptoms Clinical Impressions Clinical Impression: Diarrhea Stand Alone Forms Stand Alone Forms: Work/School Release Instructions Patient Instructions: Diarrhea Discharge ED Provider: Cici Wilhelm [facility] [place] HPI General Stated complaint: diarrhea cramps Mode of Arrival: Ambulatory Source of Information: Patient Limitations: No Limitations Time Seen by Provider: 03/26/22 11:52 Description of Symptoms (Recalled from Triage Doc. by RN): stomach cramping diarrhea, nausea after eating subway HEENT Symptoms (Recalled from RN notes): No Resp Symptoms (Recalled from RN notes): No Skin Symptoms (Recalled from RN notes): No MS Symptoms (Recalled from RN notes): No Functional Status (Recalled from RN notes): n/a History of Present Illness Provider Complaint: Patient states that he eat a meatball sub yesterday and shortly after he started having some abdominal cramping and diarrhea State that he has continued to have diarrhea today and thinks he may have had some food poisoning Related Data Home Medications Medication Instructions Recorded Confirmed paroxetine HCl 12.5 mg 12.5 mg PO DAILY Depression 08/02/20 11/22/21 tablet,extended release 24 hr bisoprolol fumarate 10 mg tablet 10 mg PO BID Hypertension 01/09/21 11/22/21 meloxicam 7.5 mg tablet 7.5 mg PO DAILY FOOT 03/20/21
[2022-03-26 12:12] VITALS: BP 141/90; PULSE 86; RESP 16; TEMP 36.7; O2SAT 98
== END 2022-03-26 12:13 | disposition home or self-care (01) ==
PROVIDERS: Emergency Provider Nurse Practitioner; PCP Nurse Practitioner Family
DX: R19.7 Diarrhea, unspecified (principal); R06.02 Shortness of breath; R11.0 Nausea; R05.9 Cough, unspecified; I10 Essential (primary) hypertension; J45.909 Unspecified asthma, uncomplicated; F32.A Depression, unspecified; F41.9 Anxiety disorder, unspecified; F17.210 Nicotine dependence, cigarettes, uncomplicated; Z79.51 Long term (current) use of inhaled steroids; Z79.52 Long term (current) use of systemic steroids; Z79.82 Long term (current) use of aspirin; Z79.899 Other long term (current) drug therapy
CPT/HCPCS: 99212; G0463

== ENCOUNTER 2022-04-23 16:27 | Emergency (ER) | payer OTHER, SELFPAY ==
[2022-04-23 17:10] VITALS: BP 128/76; PULSE 96; RESP 18; TEMP 36.6; O2SAT 99; BMI 40.0
[2022-04-23 17:16] LABS: UTC Influenza A Antigen Negative (Negative); UTC Influenza B Antigen Negative (Negative)
--- NOTE | 2022-04-23 17:20 | EXP.UTC ---
Discharge Plan Disposition Patient Disposition: Home, Self-Care Condition: Good Prescriptions Prescriptions: No Action meloxicam 7.5 mg tablet 7.5 mg PO DAILY paroxetine HCl 12.5 mg tablet extended release 24 hr 12.5 mg PO DAILY Label Comments: TAKE 1 TABLET BY MOUTH ONCE DAILY IN THE MORNING FOR 30 DAYS aspirin 81 mg tablet,delayed release (DR/EC) 81 mg PO DAILY atorvastatin 40 mg tablet 40 mg PO DAILY Qty: 90 3RF amlodipine 5 mg tablet 5 mg PO DAILY Qty: 90 1RF Rx Instructions: Take 1 tablet by mouth once daily bisoprolol fumarate 10 MG tablet 10 mg PO BID promethazine-DM 120 ML syrup 5 ml PO Q6HP PRN (Reason: Cough) Qty: 240 0RF methylprednisolone 4 MG tablets,dose pack 4 mg PO DIRECTED 6 Days Qty: 21 0RF amoxicillin-pot clavulanate 1 EACH tablet 1 tab PO Q12H 10 Days Qty: 20 0RF ondansetron 4 MG tablet,disintegrating 4 mg PO TIDP PRN (Reason: Nausea) Qty: 10 0RF promethazine-DM 6.25-15 mg/5 mL syrup 5 ml PO Q6H PRN (Reason: cough) Qty: 118 0RF azithromycin 250 mg tablet See Rx Instructions .ROUTE .COMPLEX Qty: 6 0RF Rx Instructions: For 250 mg dose pack: take 500 mg today (day 1), then 250 mg for 4 days (days 2-5) albuterol sulfate 90 mcg/actuation HFA aerosol inhaler 1 inh inhalation Q6H PRN (Reason: shortness of breath or wheezing) Qty: 8.5 0RF Referrals Follow up/Referrals: Lashon Schmidt APRN [Primary Care Provider] - See instructions Activity Restrictions/Add. Instructions Additional Instructions/Restrictions: Make sure to drink lots of fluids Over the Counter Motrin and/or Tylenol for your fever, chills and body aches Lots of rest Increase Fluids water, Gatorade, powerade, pedialyte,if /toddler/child Alternate Tylenol and / or ibuprofen as discussed for fever, aches, chills Follow up IMMEDIATELY with your family doctor for new or worsening Symptoms OR no noticeable improvement over the next 48-72 hours, 911 for difficulty or breathing You or your child area contagious until no fever, aches, chills for 24 hours with medication for symptoms Help Prevent the spread of influenza: ?Wash your hands often. Use soap and water. Wash your hands after you use the bathroom, change a child's diapers, or sneeze. Wash your hands before you prepare or eat food. Use gel hand cleanser that has 60% alcohol, when soap and water are not available. Do not touch your eyes, nose, or mouth unless you have washed your hands first. Cover your mouth when you sneeze or cough. Cough into a tissue or the bend of your arm. If you use a tissue, throw it away immediately and wash your hands. Clean shared items with a germ-killing bell cleaner. Clean table surfaces, doorknobs, and light switches. Do not share towels, silverware, and dishes with people who are sick. Wash bed sheets, towels, silverware, and dishes with soap and water. Wear a mask over your mouth and nose if you are sick. The face mask may help protect others from becoming infected with the flu. Wear the mask when in common areas of your home or if you seek care with a healthcare provider. Stay away from others if you are sick. Stay at home until 24 hours after your fever and symptoms are gone. Clinical Impressions Clinical Impression: Flu-like symptoms Stand Alone Forms Stand Alone Forms: Work/School Release Instructions Patient Instructions: DI for Influenza -- Adult, DI for Fever (Symptom) -- Adult [place]charge ED [place]ici Wilhelm [facility] [place] Stated complaint: h/a, weakness, chills Time Seen by Provider: 04/23/22 17:20 History of Present Illness Provider Complaint: Patient state that he woke up this morning with body aches, chills, headache and feeling tired and achy all over States that his daughter tested p
[2022-04-23 17:38] VITALS: BP 128/76; PULSE 96; RESP 18; TEMP 36.6; O2SAT 99
== END 2022-04-23 17:42 | disposition home or self-care (01) ==
PROVIDERS: Emergency Provider Nurse Practitioner; PCP Nurse Practitioner Family
DX: J11.1 Influenza due to unidentified influenza virus with other respiratory manifestations (principal)
CPT/HCPCS: 87804; 99212; G0463

== ENCOUNTER 2022-05-13 10:35 | Emergency (ER) | payer OTHER, SELFPAY ==
[2022-05-13 11:30] VITALS: BP 130/90; PULSE 119; RESP 19; TEMP 37; O2SAT 97; BMI 39.7
[2022-05-13 11:41] LABS: Influenza A, PCR Not Detected (NotDetected); Influenza B, PCR Not Detected (NotDetected)
--- NOTE | 2022-05-13 11:47 | EXP.UTC ---
Discharge Plan Disposition Patient Disposition: Home, Self-Care Condition: Good Prescriptions Prescriptions: New prednisone [prednisone] 20 mg tablet 20 mg PO BID Qty: 10 0RF No Action meloxicam 7.5 mg tablet 7.5 mg PO DAILY paroxetine HCl 12.5 mg tablet extended release 24 hr 12.5 mg PO DAILY Label Comments: TAKE 1 TABLET BY MOUTH ONCE DAILY IN THE MORNING FOR 30 DAYS aspirin 81 mg tablet,delayed release (DR/EC) 81 mg PO DAILY atorvastatin 40 mg tablet 40 mg PO DAILY Qty: 90 3RF amlodipine 5 mg tablet 5 mg PO DAILY Qty: 90 1RF Rx Instructions: Take 1 tablet by mouth once daily bisoprolol fumarate 10 MG tablet 10 mg PO BID promethazine-DM 120 ML syrup 5 ml PO Q6HP PRN (Reason: Cough) Qty: 240 0RF methylprednisolone 4 MG tablets,dose pack 4 mg PO DIRECTED 6 Days Qty: 21 0RF amoxicillin-pot clavulanate 1 EACH tablet 1 tab PO Q12H 10 Days Qty: 20 0RF ondansetron 4 MG tablet,disintegrating 4 mg PO TIDP PRN (Reason: Nausea) Qty: 10 0RF promethazine-DM 6.25-15 mg/5 mL syrup 5 ml PO Q6H PRN (Reason: cough) Qty: 118 0RF azithromycin 250 mg tablet See Rx Instructions .ROUTE .COMPLEX Qty: 6 0RF Rx Instructions: For 250 mg dose pack: take 500 mg today (day 1), then 250 mg for 4 days (days 2-5) albuterol sulfate 90 mcg/actuation HFA aerosol inhaler 1 inh inhalation Q6H PRN (Reason: shortness of breath or wheezing) Qty: 8.5 0RF Referrals Follow up/Referrals: Lashon Schmidt APRN [Primary Care Provider] - See instructions Activity Restrictions/Add. Instructions Additional Instructions/Restrictions: covid/flu swab was sent to lab, call tomorrow for results. self isolate until test results are known to be negative No sign of a bacterial infection. Likely viral. Viruses can take 7-14 days to run their course. Nasal saline and bulb syringe or nose Isabell to remove nasal drainage to help with nasal congestion. Hard to eat, drink, sleep with nasal congestion so important to keep this cleaned out. Monitor temp. Tylenol or Motrin as needed for pain or fever Encourage fluids, water, Gatorade, Powerade, Pedialyte if infant/toddler/child Warm salt water gargles Warm fluids Sore throat lozenges Sleep elevated Humidifier/vaporizer Follow-up immediately for new or worsening symptoms or no noticeable improvement over the next 48-72 hours. self isolate for 5 days Clinical Impressions Clinical Impression: Suspected COVID-19 virus infection Instructions Patient Instructions: DI for COVID-19 (Suspected or Confirmed ) Discharge ED Provider: Kalani ([facility] [facility] [place] General Stated complaint: Headache, cough, diarreah, chills, covid+ 05/13 Time Seen by Provider: 05/13/22 11:48 HEENT Symptoms (Recalled from RN notes): Yes Resp Symptoms (Recalled from RN notes): Yes History of Present Illness Provider Complaint: 37 yr old male presents for body aches, fever, sore throat, charles and cough since last pm. took covid test at home that was positive Related Data Home Medications Medication Instructions Recorded Confirmed paroxetine HCl 12.5 mg 12.5 mg PO DAILY Depression 08/02/20 11/22/21 tablet,extended release 24 hr bisoprolol fumarate 10 mg tablet 10 mg PO BID Hypertension 01/09/21 11/22/21 meloxicam 7.5 mg tablet 7.5 mg PO DAILY FOOT 03/20/21 11/22/21 aspirin 81 mg tablet,delayed 81 mg PO DAILY 04/21/21 11/22/21 release Previous Rx's Medication Instructions Recorded amoxicillin 875 mg-potassium 1 tab PO Q12H 10 days #20 tabs 05/16/21 clavulanate 125 mg tablet methylprednisolone 4 mg tablets in 4 mg PO DIRECTED 6 days #21 05/16/21 a dose pack packets promethazine-DM 6.25 mg-15 mg/5 mL 5 ml PO Q6HP PRN Cough #240 mL 05/16/21 oral syrup ondansetron 4 mg disintegrating 4 mg PO TIDP PRN Nausea #10 tabs 11/06/21 tablet albuterol sulfate 90 mcg/actuation 1 inh inhalation Q6H PRN shortness 02/04/22 aerosol inhale
[2022-05-13 11:50] VITALS: BP 130/90; PULSE 119; RESP 19; TEMP 37; O2SAT 97
[2022-05-13 12:56] LABS: Coronavirus 19, PCR Detected (NotDetected)
== END 2022-05-13 11:58 | disposition home or self-care (01) ==
PROVIDERS: Emergency Provider Nurse Practitioner Family; PCP Nurse Practitioner Family
DX: U07.1 COVID-19 (principal)
CPT/HCPCS: 99212; C9803; G0463; U0003; U0005

== ENCOUNTER 2022-10-20 20:31 | Emergency (ER) | payer OTHER, SELFPAY ==
[2022-10-20 20:38] VITALS: BP 169/105; PULSE 112; RESP 16; TEMP 37.1; O2SAT 96; BMI 39.3
[2022-10-20 20:43] LABS: Microscopic, Urine URINE MICROSCOPIC (MICROSCOPIC)
--- NOTE | 2022-10-20 20:48 | CT_ITS ---
PROCEDURE INFORMATION: Exam: CT Abdomen And Pelvis With Contrast Exam date and time: 10/20/2022 9:03 PM Age: 37 years old Clinical indication: Abdominal pain; Patient HX: Mid abd pain x 5days TECHNIQUE: Imaging protocol: Computed tomography of the abdomen and pelvis with contrast. Radiation optimization: All CT scans at this facility use at least one of these dose optimization techniques: automated exposure control; mA and/or kV adjustment per patient size (includes targeted exams where dose is matched to clinical indication); or iterative reconstruction. Contrast material: ISOVUE; Contrast volume: 75 ml; Contrast route: IV; REPORTING DATA: Count of CT and Cardiac NM exams in prior 12 months: This patient has received [address] and 0 known cardiac nuclear medicine studies in the 12 months prior to the current study. COMPARISON: CT HEART W CALCIUM SCORE 10/14/2020 7:50 AM FINDINGS: Lungs: Lung bases are clear. Pleural spaces: No pleural effusion. Heart: The visualized heart is normal. No pericardial effusion. Liver: The liver is diffusely hypodense, consistent with steatosis. Gallbladder and bile ducts: The gallbladder is unremarkable. No biliary ductal dilatation. Pancreas: The pancreas is unremarkable. Spleen: The spleen is unremarkable. Adrenal glands: The adrenal glands are normal. Kidneys and ureters: The kidneys enhance symmetrically without hydronephrosis. The ureters have normal course and caliber without stone. Stomach and bowel: The stomach is normal. The small and large bowel have normal course and caliber. No evidence of bowel obstruction. No pericolonic inflammatory stranding. Appendix: The appendix is normal. Intraperitoneal space: No significant peritoneal free fluid. No free peritoneal air. Vasculature: No abdominal aortic aneurysm. Lymph nodes: No suspicious adenopathy by size criteria. Urinary bladder: Urinary bladder is decompressed and not well evaluated. Reproductive: Unremarkable as visualized. Bones/joints: No acute fracture. Soft tissues: Unremarkable. IMPRESSION: 1. No acute intra-abdominal/pelvic abnormality. 2. Other findings as above.
--- NOTE | 2022-10-20 20:51 | PC.NURSE ---
called johan for patient CT scan to be next in line
[2022-10-20 20:55] LABS: Appearance,Urine CLEAR (Clear); Bilirubin,Urine Negative (Negative); Blood, Urine Negative (Negative); Color,Urine YELLOW (Yellow); Glucose,Urine (UA) Negative (Negative); Ketones,Urine Negative (Negative); Leukocyte Esterase,Urine Negative (Negative); Nitrate,Urine Negative (Negative); Protein,Urine TRACE (Negative); Specific Gravity, Urine >= 1.030 (1.005-1.030)
[2022-10-20 20:57] LABS: Basophils # 0.1 K/mm3 (0-0.2); Basophils % 0.8 % (0.1-2.0); Eosinophils # 0.4 K/mm3 (0.0-0.4); Eosinophils % 4.2 % (0.1-12.0); Hematocrit 48.4 % (42.0-52.0); Hemoglobin 16.3 g/dL (14.1-18.0); Lymphocytes # 3.8 K/mm3 (0.7-4.5); Lymphocytes % 37.5 % (10-50); Mean Corpuscular HGB Conc 33.8 g/dL (31.8-35.4); Mean Corpuscular Hemoglobin 30.1 pg (27.0-31.2); Monocytes # 0.5 K/mm3 (0.1-1.0); Monocytes % 4.9 % (1.7-9.3); Neutrophils # 5.3 K/mm3 (1.8-7.8); Neutrophils % 52.7 % (37.0-80.0); Platelet Count 338 K/mm3 (142-424); Red Blood Count 5.43 M/mm3 (4.60-6.20); Red Cell Distribution Width 13.1 % (11.5-17.5)
[2022-10-20 21:02] LABS: Alanine Aminotransferase 141 U/L (12-78); Albumin Level 4.6 g/dl (3.5-5.0); Albumin/Globulin Ratio 1.6 (1.1-1.8); Alkaline Phosphatase 143 U/L (38-126); Amylase 80 U/L (30-110); Anion Gap 17.8 mEq/L (5-15); Aspartate Amino Transferase 88 U/L (17-59); Bilirubin,Total 0.5 mg/dl (0.2-1.3); Blood Urea Nitrogen 10 mg/dl (9-20); Carbon Dioxide 26 mmol/L (22.0-30.0); Chloride 98 mmol/L (98-107); Creatinine Clearance Estimated 220 mL/min (50-200); Estimated Glomerular Filt Rate 108 ml/min (>60); GFR (African American) 131 ML/MIN (>60); Globulin 2.9 g/dL (1.3-3.2); Glucose 180 mg/dl (74-100); Lipase 245 U/L (23-300); Potassium 3.8 mmoL/L (3.5-5.1); Sodium 138 mmol/L (136-145); Total Protein,Serum 7.5 g/dl (6.3-8.2)
[2022-10-20 21:08] LABS: C-Reactive Protein 2.8 mg/L (0-4)
[2022-10-20 21:15] LABS: Squamous Epithelial Cell,Urine Occasional #/hpf (0-5); WBC,Urine Occasional #/hpf (0-3)
--- NOTE | 2022-10-20 21:17 | HMH.EDABDPAI ---
Discharge Plan Disposition Patient Disposition: Home, Self-Care Prescriptions Prescriptions: No Action meloxicam 7.5 mg tablet 7.5 mg PO DAILY paroxetine HCl 12.5 mg tablet extended release 24 hr 12.5 mg PO DAILY Label Comments: TAKE 1 TABLET BY MOUTH ONCE DAILY IN THE MORNING FOR 30 DAYS aspirin 81 mg tablet,delayed release (DR/EC) 81 mg PO DAILY atorvastatin 40 mg tablet 40 mg PO DAILY Qty: 90 3RF amlodipine 5 mg tablet See Rx Instructions .ROUTE .COMPLEX Qty: 90 1RF Dose Instruction: Take 1 tablet by mouth once daily Rx Instructions: Take 1 tablet by mouth once daily bisoprolol fumarate 10 MG tablet 10 mg PO BID promethazine-DM 120 ML syrup 5 ml PO Q6HP PRN (Reason: Cough) Qty: 240 0RF methylprednisolone 4 MG tablets,dose pack 4 mg PO DIRECTED 6 Days Qty: 21 0RF amoxicillin-pot clavulanate 1 EACH tablet 1 tab PO Q12H 10 Days Qty: 20 0RF ondansetron 4 MG tablet,disintegrating 4 mg PO TIDP PRN (Reason: Nausea) Qty: 10 0RF promethazine-DM 6.25-15 mg/5 mL syrup 5 ml PO Q6H PRN (Reason: cough) Qty: 118 0RF azithromycin 250 mg tablet See Rx Instructions .ROUTE .COMPLEX Qty: 6 0RF Rx Instructions: For 250 mg dose pack: take 500 mg today (day 1), then 250 mg for 4 days (days 2-5) albuterol sulfate 90 mcg/actuation HFA aerosol inhaler 1 inh inhalation Q6H PRN (Reason: shortness of breath or wheezing) Qty: 8.5 0RF prednisone [prednisone] 20 mg tablet 20 mg PO BID Qty: 10 0RF Referrals Follow up/Referrals: Lashon Schmidt APRN [Primary Care Provider] - See instructions Clinical Impressions Clinical Impression: Abdominal pain Instructions Patient Instructions: DI for Acute Abdominal Pain Discharge ED Provider: Radames (LENNIE)Juan Abdominal Pain HPI General Chief Complaint: Abdominal Pain Stated Complaint: stomach pain Time Seen by Provider: 10/20/22 21:17 Mode of Arrival: Family Vehicle Source of Information: Patient and Medical Record Limitations: No Limitations Description of Symptoms (Recalled from ER Triage Doc. by RN): 37 yo male presents with CC of mid epigastric pain with radiation down into umbilical area; additionally he has right upper quad and right lower quad pain since Saturday (4 days prior); denies nausea vomiting diarrhea. afebrile. Reports no change UOP or BM. Last BM last night. No previous abd surgeries History of Present Illness HPI narrative: progressive abd pain epigastric to umbilical and more on rt over the last few days - no fever/rash and no vomiting or diarrhea and no trauma or urinary sx MD complaint: abdominal pain Onset (ago): day(s) Consistency: intermittent Location: periumbilical, RUQ and epigastric Severity: moderate Quality: sharp Associated symptoms: denies other symptoms Related Data Home Medications Medication Instructions Recorded Confirmed paroxetine HCl 12.5 mg 12.5 mg PO DAILY Depression 08/02/20 11/22/21 tablet,extended release 24 hr bisoprolol fumarate 10 mg tablet 10 mg PO BID Hypertension 01/09/21 11/22/21 meloxicam 7.5 mg tablet 7.5 mg PO DAILY FOOT 03/20/21 11/22/21 aspirin 81 mg tablet,delayed 81 mg PO DAILY 04/21/21 11/22/21 release Previous Rx's Medication Instructions Recorded amoxicillin 875 mg-potassium 1 tab PO Q12H 10 days #20 tabs 05/16/21 clavulanate 125 mg tablet methylprednisolone 4 mg tablets in 4 mg PO DIRECTED 6 days #21 05/16/21 a dose pack packets promethazine-DM 6.25 mg-15 mg/5 mL 5 ml PO Q6HP PRN Cough #240 mL 05/16/21 oral syrup ondansetron 4 mg disintegrating 4 mg PO TIDP PRN Nausea #10 tabs 11/06/21 tablet albuterol sulfate 90 mcg/actuation 1 inh inhalation Q6H PRN shortness 02/04/22 aerosol inhaler of breath or wheezing #8.5 grams azithromycin 250 mg tablet See Rx Instructions PO .COMPLEX #6 02/04/22 tabs promethazine-DM 6.25 mg-15 mg/5 mL 5 ml PO Q6H PRN cough #118 mL 02/04/22 oral syrup atorvasta
[2022-10-20 21:19] LABS: Erythrocyte Sedimentation Rate 4 mm/hr (0-15)
[2022-10-20 21:21] LABS: Procalcitonin 0.102 ng/mL (0.0-2.0)
[2022-10-21 00:15] VITALS: BP 136/89; PULSE 101; RESP 16; TEMP 36.9
== END 2022-10-21 00:18 | disposition home or self-care (01) ==
PROVIDERS: Emergency Provider Emergency Medicine; PCP Nurse Practitioner Family
DX: R10.33 Periumbilical pain (principal); R10.13 Epigastric pain
CPT/HCPCS: 74177; 80053; 81001; 82150; 83690; 84145; 85025; 85651; 86140; 96361; 96374; 96375; 99284; 99285; Q9967

== ENCOUNTER 2024-02-18 13:17 | Emergency (ER) | payer OTHER, SELFPAY ==
--- NOTE | 2024-02-18 13:29 | ED_ITS ---
Discharge Plan Disposition Patient Disposition: Home, Self-Care Condition: Good Prescriptions Prescriptions: New cephalexin 500 mg capsule 500 mg PO QID Qty: 40 0RF mupirocin 2 % ointment 1 applic topical TID 7 Days Qty: 15 0RF No Action meloxicam 7.5 mg tablet 7.5 mg PO DAILY paroxetine HCl 12.5 mg tablet extended release 24 hr 12.5 mg PO DAILY Patient Comments: TAKE 1 TABLET BY MOUTH ONCE DAILY IN THE MORNING FOR 30 DAYS aspirin 81 mg tablet,delayed release (DR/EC) 81 mg PO DAILY atorvastatin 40 mg tablet 40 mg PO DAILY Qty: 90 3RF amlodipine 5 mg tablet See Rx Instructions .ROUTE .COMPLEX Qty: 90 1RF Dose Instruction: Take 1 tablet by mouth once daily Rx Instructions: Take 1 tablet by mouth once daily bisoprolol fumarate 10 MG tablet 10 mg PO BID promethazine-DM 120 ML syrup 5 ml PO Q6HP PRN (Reason: Cough) Qty: 240 0RF methylprednisolone 4 MG tablets,dose pack 4 mg PO DIRECTED 6 Days Qty: 21 0RF amoxicillin-pot clavulanate 1 EACH tablet 1 tab PO Q12H 10 Days Qty: 20 0RF ondansetron 4 MG tablet,disintegrating 4 mg PO TIDP PRN (Reason: Nausea) Qty: 10 0RF promethazine-DM 6.25-15 mg/5 mL syrup 5 ml PO Q6H PRN (Reason: cough) Qty: 118 0RF azithromycin 250 mg tablet See Rx Instructions .ROUTE .COMPLEX Qty: 6 0RF Rx Instructions: For 250 mg dose pack: take 500 mg today (day 1), then 250 mg for 4 days (days 2-5) albuterol sulfate 90 mcg/actuation HFA aerosol inhaler 1 inh inhalation Q6H PRN (Reason: shortness of breath or wheezing) Qty: 8.5 0RF prednisone [prednisone] 20 mg tablet 20 mg PO BID Qty: 10 0RF Referrals Follow up/Referrals: Sofya Givens MD [Primary Care Provider] - See instructions Kayy Aguilar DPM [Staff Physician] - See instructions Activity Restrictions/Add. Instructions Additional Instructions/Restrictions: Rest the extremity, Elevate the extremity as tolerated while you are resting. Take ibuprofen for pain. I sent in a prescription to your pharmacy. Follow up with Dr. Aguilar (podiatry). Since you are a diabetic we need to be very careful with your feet. Close follow up on an injury like this is very important. I put in a referral but you need to call her office and schedule an appointment. Follow up with your regular doctor. GO TO THE ER FOR ANY WORSENING SYMPTOMS Clinical Impressions Clinical Impression: Puncture wound of foot, left, Need for Tdap vaccination, Diabetes Instructions Patient Instructions: DI for Puncture Wound, Ceftriaxone Injection, Tetanus, Diphtheria, Pertussis (Tdap) Vaccine Print Language Print Language: Romanian Discharge ED Provider: Tutu Donaldson [facility] HPI General Stated complaint: L Foot pain ao stepped on object Time Seen by Provider: 02/18/24 13:29 History of Present Illness Provider Complaint: He states that he was walking outside last night barefooted when he stepped on something sharp with his left foot. He has a puncture wound on the bottom of that foot. He is a diabetic. Related Data Home Medications ?Medication ?Instructions ?Recorded ?Confirmed paroxetine HCl 12.5 mg 12.5 mg PO DAILY Depression 08/02/20 11/22/21 tablet,extended release 24 hr bisoprolol fumarate 10 mg tablet 10 mg PO BID Hypertension 01/09/21 11/22/21 meloxicam 7.5 mg tablet 7.5 mg PO DAILY FOOT 03/20/21 11/22/21 aspirin 81 mg tablet,delayed 81 mg PO DAILY 04/21/21 11/22/21 release Previous Rx's ?Medication ?Instructions ?Recorded amoxicillin 875 mg-potassium 1 tab PO Q12H 10 days #20 tabs 05/16/21 clavulanate 125 mg tablet methylprednisolone 4 mg tablets in 4 mg PO DIRECTED 6 days #21 05/16/21 a dose pack packets promethazine-DM 6.25 mg-15 mg/5 mL 5 ml PO Q6HP PRN Cough #240 mL 05/16/21 oral syrup ondansetron 4 mg disintegrating 4 mg PO TIDP PRN Nausea #10 tabs 11/06/21 tablet albuterol sulfate 90 mcg/actuation 1 inh inhalation Q6H PRN shortness 02/04/22 aerosol inhaler of breath or wheezing #8.5 grams azithromycin 250 mg tablet See Rx Instructions PO .COMPLEX #6 02/04/22 tabs promethazine-DM 6.25 mg-15 mg/5 mL 5 ml PO Q6H PRN cough #118 mL 02/04/22 oral syrup atorvastatin 40 mg tablet 40 mg PO DAILY Cholesterol #90 tabs 03/06/22 prednisone 20 mg tablet 20 mg PO BID #10 tabs 05/13/22 amlodipine 5 mg tablet See Rx Instructions .Route 05/21/22 .COMPLEX #90 tabs cephalexin 500 mg capsule 500 mg PO QID #40 caps 02/18/24 mupirocin 2 % topical ointment 1 applic topical TID 7 days #15 02/18/24 grams Allergies Allergy/AdvReac Type Severity Reaction Status Date / Time No Known Allergies Allergy Verified 11/22/21 13:52 [facility] Disclaimer: The information contained in this section may have been updated after the patient was seen, as this information can be updated by other users. Medical History , METER READER INSPECTOR) Anxiety Asthma Depression Hyperlipidemia Hypertension Kidney stone Surgical History , METER READER INSPECTOR) History of tonsillectomy Family History , METER READER INSPECTOR) No significant family history Social History , METER READER INSPECTOR) Smoking Status: Unknown if ever smoked second hand exposure: No alcohol intake: never substance use type: denies use current occupational status: employed and other Travel in the last 8 weeks: None household members: spouse and children housing: house current occupation: welder gas current occupational exposures/hazards: No caffeine: Yes ROS Obtained: Yes All systems reviewed & no additional complaints except as documented Constitutional Constitutional: Denies chills and Denies fever(s) Eyes Eyes: Denies eye discharge ENT Ears, Nose, Mouth, and Throat: Denies dizziness, Denies otalgia and Denies sore throat Cardiovascular Cardiovascular: Denies chest pain Respiratory Respiratory: Denies shortness of breath, Denies chest congestion, Denies cough, Denies stridor and Denies wheezing Gastrointestinal Gastrointestingal: Denies nausea or vomiting Musculoskeletal Musculoskeletal: Reports system reviewed and no additional complaints, except as documented and Denies arthralgias Integumentary/Breasts Skin/Breast: Reports as per HPI and Reports redness Neurologic Neurologic: Denies dizziness and Denies paresthesias Allergic/Immunologic Allergic/Immunologic: Denies wheezing Physical Exam General General appearance: alert and in no apparent distress Head Head exam: atraumatic, normocephalic and normal inspection Eye Eye exam: Present normal appearance, PERRL and EOMI ENT ENT exam: Present normal exam, normal oropharynx, mucous membranes moist, TM's normal bilaterally and normal external ear exam Neck Neck exam: Present normal inspection, full ROM and trachea midline; Absent meningismus or lymphadenopathy Chest Chest inspection: Present normal inspection and symmetric chest wall rise; A bsent tenderness Respiratory Respiratory exam: Present normal lung sounds bilaterally; Absent respiratory distress Cardiovascular Cardiovascular exam: Present regular rate and normal rhythm; Absent JVD Abdominal Exam Abdominal exam: Present soft and normal bowel sounds; Absent distention, tenderness or guarding Extremities Exam Extremities exam: Present normal inspection, full ROM and normal capillary refill; Absent calf tenderness Back Exam Back exam: Present normal inspection; Absent tenderness Neurological Exam Neurological exam: Present alert and oriented X3 Psychiatric Psychiatric exam: Present normal affect and normal mood Skin Skin exam: Present other (there is a small puncture wound on the bottom of his left foot. there appears to be a splinter in the wound. there is mild redness that surrounds the wound. no drainage. ) Lymphatic Lymphatic Findings: no adenopathy Medical Decision Making Medical Records Medical records reviewed: No I reviewed the patient's medical records. Screening: Per USPSTF and CDC recommendations, given the prevalence of disease in our region, it is our hospital?s policy to screen for HIV and viral Hepatitis for all patients aged 18 and over and those with ongoing risk factors. Thierno Inquiry Pt receiving controlled substance: No Radiology Data #1: Image(s): Foot/Toes Image Reviewed: Yes I reviewed the patient's radiology image and Yes I have reviewed radiologist's interpretation Preliminary Findings: Normal/NAD Accession No. : [id number] Patient Name / ID : Zulma Menezes / [id number] Exam Date : 02/18/2024 13:34:15 ( Final ) Study Comment : Sex / Age : M / 38Y Creator : SHAWNEE MCCURDY Dictator : Director Of Software Development : [employer] E Business Developer : SHAWNEE MCCURDY Approver2 : Report Date : 02/18/2024 15:11:04 My Comment : FINAL REPORT CLINICAL HISTORY: stepped on something COMPARISON: 03/13/2021 FINDINGS: Left foot Three views were obtained. There is no acute fracture or dislocation. The joint spaces appear normal. No soft tissue abnormality is identified. There is a small plantar spur. IMPRESSION: No acute process. Reviewed, Interpreted and Dictated by Shawnee Mccurdy MD Transcribed by Ambika Sotelo Authenticated and [facility] Procedures Risk/Benefits of Procedure(s) Were Explained: Yes Foreign Body Removal Time Out Performed: Yes Site: left and foot Description of foreign body: other (splinter) Sedation/Analgesia: none Technique: incision made to facilitate removal Confirmed by:: direct visualization Complications: none Post-procedure exam: awake, alert, normal BP, normal HR and normal O2 sat Neurovascular: normal distal pulse, normal capillary fill, distal light touch sensation intact, distal motor function normal, no signs of compartment syndrome and no change from pre-procedure (He tolerated this well. the splinter was removed easily after the skin was scraped off above it. all the splinter was removed)
[2024-02-18 13:32] VITALS: BP 121/78; PULSE 99; RESP 16; TEMP 36.6; O2SAT 98; BMI 38.7
[2024-02-18] MEDS: cefTRIAXone 1GM VIAL 1 GM IM (14:14)
[2024-02-18] MEDS: TET/DIPHTH/PERT-ADULT 0.5ML SYRINGE 0.5 ML IM (14:14)
[2024-02-18] MEDS: LIDOCAINE 1% 5ML PF VIAL IM (14:14)
[2024-02-18 14:38] VITALS: BP 121/78; PULSE 99; RESP 16; TEMP 36.6; O2SAT 98
== END 2024-02-18 14:39 | disposition home or self-care (01) ==
PROVIDERS: Emergency Provider Nurse Practitioner Family; PCP Family Medicine
DX: S91.332A Puncture wound without foreign body, left foot, initial encounter (principal); E11.9 Type 2 diabetes mellitus without complications; Z23 Encounter for immunization; W45.8XXA Other foreign body or object entering through skin, initial encounter
CPT/HCPCS: 10120; 73630; 90471; 90715; 96372; 99213; 99214; G0463; J0696

== ENCOUNTER 2024-06-12 14:34 | Outpatient (CLI) | payer OTHER, SELFPAY ==
--- NOTE | 2024-06-12 | US_ITS ---
FINAL REPORT CLINICAL HISTORY: LEFT LEG PAIN-- upper thigh FINDINGS: ULTRASOUND SOFT TISSUES OF THE LEFT UPPER THIGH TECHNIQUE: Limited sonographic imaging of the soft tissues of the left upper thigh were obtained. FINDINGS: No masses identified. There is no lymphadenopathy. No fluid collection is identified. IMPRESSION: No abnormality visualized at the area of clinical interest. Reviewed, Interpreted and Dictated by Urbano Mccurdy MD Transcribed by Radha Pizarro Authenticated and [facility]
== END 2024-06-12 23:59 | disposition home or self-care (01) ==
LOC: RAD 14:35
PROVIDERS: PCP Nurse Practitioner; Visit Provider Nurse Practitioner
DX: M79.605 Pain in left leg (principal)
CPT/HCPCS: 76882

== ENCOUNTER 2024-11-11 12:48 | Outpatient (CLI) | payer SELFPAY ==
--- NOTE | 2024-11-11 12:53 | XR_ITS ---
FINAL REPORT TECHNIQUE: Chest PA & Lateral CLINICAL HISTORY: cough/chest congestion, fever COMPARISON: 07/31/2020 FINDINGS: 2 views of the chest were performed. The heart size is normal. The mediastinum is within normal limits. There is no acute cardiopulmonary process. There are no pleural effusions. There is no pneumothorax. There is a plate and screws bridging the mid and distal left clavicle, stable since the prior exam of 2020. IMPRESSION: No acute cardiopulmonary process. Reviewed, Interpreted and Dictated by Urbano Mccurdy MD Transcribed by Christi Santiago Authenticated and [facility]
[2024-11-11 16:02] LABS: Coronavirus 19, PCR Not Detected (NotDetected); Influenza A, PCR Not Detected (NotDetected); Influenza B, PCR Not Detected (NotDetected); Respiratory Syncytial Virus Not Detected (NotDetected)
[2024-11-11 20:05] LABS: Human Rhinovirus Detected (NotDetected)
== END 2024-11-11 23:59 | disposition home or self-care (01) ==
LOC: RAD 12:51
PROVIDERS: PCP Nurse Practitioner; Visit Provider Nurse Practitioner
DX: R09.89 Other specified symptoms and signs involving the circulatory and respiratory systems (principal); R05.9 Cough, unspecified; R50.9 Fever, unspecified
CPT/HCPCS: 71046; 87631

== ENCOUNTER 2025-03-19 10:20 | Outpatient (CLI) | payer OTHER, SELFPAY ==
--- OUTSIDE RECORDS SUMMARY | 2025-03-19 10:24 | XMS_ITS | Clinical Summary ---
Author Organization [facility] Address [address] [place] [address] Care Team Providers Care Web Applications Developer Name Role Phone Reshma Arellano Primary Care Provider [phone]- [phone] Allergies No known active allergies Medications predniSONE (DELTASONE) 20 MG tabletIndications:I ntrinsic asthma with exacerbation, unspecified asthma severity Take 2 tab po now, then 1 tab po on 07/12/19, 1/2 tab po on 07/13/19, 07/14/19 4 tablet 0 Active albuterol sulfate HFA 108 (90 Base) MCG/ACT inhalerIndications: Intrinsic asthma with exacerbation, unspecified asthma severity Inhale 2 puffs Every 4 (Four) Hours As Needed for Wheezing. 1 inhaler 0 Active promethazine-dextro methorphan (PROMETHAZINE-DM) 6.25-15 MG/5ML syrup Take 5 mL by mouth At Night As Needed for Cough. 180 mL 0 Active ondansetron ODT (ZOFRAN ODT) 4 MG disintegrating tablet Take 1 tablet by mouth Every 6 (Six) Hours As Needed for Nausea or Vomiting. 8 tablet 0 Active Active Problems No known active problems Immunizations Immunization Administration Dates Next Due Fluzone >6mos 03/22/2016 Hep B, Adolescent or Pediatric 09/22/1996,1995,01/07/1996 MMR 01/07/1996 Family History Medical History Relation Name Comments No Known Problems Father No Known Problems Mother Relation Name Status Comments Father Alive Mother Alive Social History Tobacco Use Types Packs/Day Years Used Date Smoking Tobacco: Every Day Cigarettes 1 15 Smokeless Tobacco: Current Tobacco Cessation:Ready to Q uit: No; Counseling Given: Yes Alcohol Use Standard Drinks/Week Comments Not Asked 0 (1 standard drink = 0.6 oz pur e alcohol) denies Abuse Screen Answer Date Recorded Unsafe at Home or Work/School Not on file Feels Threatened by Someone? Not on file 04/2023 Does Anyone Keep You from Co ntacting Others or Doint Things Outside the Home? Not on file 03/13/2023 Physical Sign of Abuse Present Not on file 1 Housing Stability Answer Date Recorded Current Living Arrangements Not on file 03/03 Potentially Unsafe Housing Conditions Not on emely e 03/13/2023 Family and Community Support Answer Haja e Recorded Help with Day-to-Day Activities Not on file 03/13/2023 Lonely or Isolated Not on file 03/13/2023 Employment Answer Date Recorded Do you want help finding or keeping work or a cortez b? Not on file 03/13/2023 Disabilities Answer Date Recorded Concentrating, Remembering, or Making Decisions Difficulty Not on file 03/13/2023 Doing Errands Independently Difficulty Not on fi le 03/13/2023 Education Answer Date Recorded Help with school or training? Not on file Preferred Language Not on file 03/13/2023 Sex and Gender Information Value Date Recorded Sex Assigned at Not on file Legal Sex Male 4:08 PM EST Gender Identity Not on file Sexual Orientation Not on file Last Filed Vital Signs Vital Sign Reading Time Taken Comments Blood Pressure 118/76 07/11/2019 9:21 AM EST Pulse 129 07/11/2019 9:21 AM EST Temperature 38.8 C (101.9 F) 07/11/2019 9:34 AM EST Respiratory Rate 16 07/11/2019 9:21 AM EST Oxygen Saturation 94% 07/11/2019 9:21 AM EST Inhaled Oxygen Concentration - - Weight 117 kg (257 lb) 07/11/2019 9:21 AM EST Height 177.8 cm (5' 10 ) 07/11/2019 9:21 AM EST Body Mass Index 36.88 07/11/2019 9:21 AM EST Plan of Treatment Health Maintenance Due Date Last Done Comments TDAP/TD VACCINES (1 - Tdap) 2003 ANNUAL PHYSICAL 07/02/2017 HEPATITIS C SCREENING 07/02/2017 INFLUENZA VACCINE 01/01/2025 03/22/2016 Pneumococcal Vaccine 0-49 Aged Out No longer eligible based on patient's age to complete this topic Insurance [employer] [facility] Care Teams Web Applications Developer Relationship Specialty Start Date End Date Reshma Arellano PA PCP - General Physician Tax Auditor 07/15/16
--- NOTE | 2025-03-19 10:27 | XR_ITS ---
FINAL REPORT CLINICAL HISTORY: PAIN, NO KNOWN INJURY COMPARISON: 04/10/2021 FINDINGS: LEFT KNEE 3 views of the left knee were obtained. There is no acute fracture or dislocation. Mild compartment degenerative changes present. Soft tissues are unremarkable. IMPRESSION: Mild degenerative change, with no acute bony abnormality. Reviewed, Interpreted and Dictated by Vargas Herbert MD Transcribed by Christi Santiago Authenticated and [facility]
--- NOTE | 2025-03-19 10:27 | XR_ITS ---
FINAL REPORT TECHNIQUE: Left femur, 2 views CLINICAL HISTORY: PAIN, NO KNOWN INJURY COMPARISON: None FINDINGS: Two views show no evidence of an acute, displaced fracture or dislocation of the visualized bony architecture. The joint spaces appear normal. IMPRESSION: Unremarkable exam. Reviewed, Interpreted and Dictated by Vargas Herbert MD Transcribed by Christi Santiago Authenticated and [facility]
[2025-03-19 11:22] LABS: Hemoglobin A1C 6.2 % (4.0-6.0)
[2025-03-19 11:59] LABS: Cholesterol 236 mg/dl (140-200); HDL Cholesterol 49 mg/dl (40-60); Triglycerides 354 mg/dl (30-150)
[2025-03-19 12:06] LABS: Alanine Aminotransferase 102 U/L (12-78); Albumin Level 4.7 g/dl (3.5-5.0); Albumin/Globulin Ratio 1.8 (1.1-1.8); Alkaline Phosphatase 103 U/L (38-126); Anion Gap 16.4 mEq/L (5-15); Aspartate Amino Transferase 64 U/L (17-59); Bilirubin,Total 1.0 mg/dl (0.2-1.3); Blood Urea Nitrogen 18 mg/dl (9-20); Calcium 9.3 mg/dl (8.4-10.2); Carbon Dioxide 22 mmol/L (22.0-30.0); Chloride 102 mmol/L (98-107); Creatinine,Serum 0.90 mg/dl (0.66-1.25); Estimated Glomerular Filt Rate 93 ml/min (>60); GFR (African American) 113 ML/MIN (>60); Globulin 2.6 g/dL (1.3-3.2); Glucose 162 mg/dl (74-100); Potassium 4.4 mmoL/L (3.5-5.1); Sodium 136 mmol/L (136-145); Total Protein,Serum 7.3 g/dl (6.3-8.2)
== END 2025-03-19 23:59 | disposition home or self-care (01) ==
PROVIDERS: PCP Nurse Practitioner; Visit Provider Nurse Practitioner
DX: M25.562 Pain in left knee (principal); I10 Essential (primary) hypertension; E29.1 Testicular hypofunction; E11.9 Type 2 diabetes mellitus without complications
CPT/HCPCS: 36415; 73552; 73562; 80053; 80061; 82043; 82570; 83036; 84402; 84403

== ENCOUNTER 2025-04-01 07:15 | Outpatient (CLI) | payer OTHER, SELFPAY ==
--- NOTE | 2025-04-01 07:15 | MR_ITS ---
FINAL REPORT CLINICAL HISTORY: left knee pain, giving out, nki FINDINGS: Multi planar MR imaging was performed of the left knee. The anterior and posterior cruciate ligaments are intact. The quadriceps and patellar tendons are intact. The medial and lateral menisci are intact without evidence of tear. The medial and lateral collateral ligaments appear intact. The medial and lateral retinacula appear intact. There is a small joint effusion. There are multiple osteochondral lesions along the undersurface of the patella. Individual lesions measure up to 8 mm. There is moderate narrowing of the lateral articular facet of the patellofemoral joint. No evidence of soft tissue inflammatory reaction. IMPRESSION: Osteochondral lesions along the undersurface of the patella. Reviewed, Interpreted and Dictated by Urbano Mccurdy MD Transcribed by Ambika Sotelo Authenticated and [facility]
== END 2025-04-01 23:59 | disposition home or self-care (01) ==
LOC: RAD 07:16
PROVIDERS: PCP Nurse Practitioner; Visit Provider Physician Assistant
DX: M25.862 Other specified joint disorders, left knee (principal); M23.92 Unspecified internal derangement of left knee; M25.362 Other instability, left knee; M25.562 Pain in left knee
CPT/HCPCS: 73721

== ENCOUNTER 2025-04-13 15:01 | Outpatient (CLI) | payer OTHER, SELFPAY ==
[2025-04-13 20:43] LABS: Coronavirus 19, PCR Not Detected (NotDetected); Influenza A, PCR Not Detected (NotDetected); Influenza B, PCR Not Detected (NotDetected)
--- OUTSIDE RECORDS SUMMARY | 2025-04-14 13:31 | XMS_ITS | Clinical Summary ---
Author Organization [facility] Address [address] [place] [address] Care Team Providers Care Packaging Operator Name Role Phone Reshma Arellano Primary Care Provider [phone]- [phone] Allergies No known active allergies Medications predniSONE [...] age to complete this topic Insurance [employer] [facility] Care Teams Packaging Operator Relationship Specialty Start Date End Date Reshma Arellano PA PCP - General Physician Stock Controller 07/15/16
== END 2025-04-13 23:59 | disposition home or self-care (01) ==
LOC: LAB.DROPOF 04-14 13:11
PROVIDERS: PCP Nurse Practitioner; Visit Provider Student in an Organized Health Care Education/Training Program
DX: J06.9 Acute upper respiratory infection, unspecified (principal)
CPT/HCPCS: 87631